=== PATIENT | female | born 1950 | race Caucasian/White ===

== ENCOUNTER 2017-10-16 11:06 | Inpatient (IN) | payer OTHER, BC ==
--- NOTE | 2017-10-16 11:52 | RAD REPORT ---
EXAM DESCRIPTION: RAD - Chest Single View - 10/16/2017 11:47 am CLINICAL HISTORY: Fever and chills COMPARISON: 08/01/2017 FINDINGS: Portable technique limits examination quality. Mild linear opacities are present in the right upper lobe which could indicate developing pneumonia. The lungs are otherwise emphysematous but clear. The heart is mildly enlarged in size. No displaced f ractures.
[2017-10-16] MEDS ORDERED: NA CHLORIDE 0.9% 1,000 ML ONE (11:56)
[2017-10-16 12:10] LABS: Absolute Lymphocytes (CBC) 0.2 K/uL (0.7-4.9); Absolute Monocytes 0.9 K/uL (0.1-1.3); Absolute Neutrophil 15.5 K/uL (1.8-8.0); Basophils % 1.2 % (0-1.3); Eosinophils % 0.1 % (0-4.4); Hematocrit 16.6 % (36.0-45.0); Lymphocytes % 1.1 % (15.3-44.8); MCH 34.3 pg (27.0-35.0); MCV 104.5 fL (80-100); Monocytes % 5.2 % (3.3-12.3); RBC Red Blood Cell Count 1.59 M/uL (3.86-4.86)
[2017-10-16 12:27] LABS: Potassium 3.4 mEq/L (3.6-5.0)
[2017-10-16 12:29] LABS: Protime INR 1.34
[2017-10-16 12:33] LABS: Albumin 3.4 g/dL (3.2-5.5); Bilirubin Direct 0.2 mg/dL (0-0.2); Bilirubin Total 1.2 mg/dL (0.3-1.2); Magnesium 1.6 mg/dL (1.8-2.5); Protein, Total 8.8 g/dL (6.0-8.3)
[2017-10-16 12:35] LABS: CKMB Creatine Kinase MB 2.7 ng/ml (0.3-4.0)
[2017-10-16] MEDS ORDERED: Levofloxacin500mg IV 500 MG/100 ML BAG IV ONE (12:49)
[2017-10-16] MEDS ORDERED: PANTOPRAZOLE 40 MG INJ ONE (12:49)
[2017-10-16] MEDS ORDERED: CEFTRIAXONE/SWI 1gm 1 GM/10 ML SYR ONE (12:49)
--- NOTE | 2017-10-16 13:02 | ER ---
Nurse's Notes [facility] Name: Farida Estrella Age: 67 yrs Sex: Female : 1950 Arrival Date: 10/16/2017 Time: 11:09 Bed 4 Private MD: Vic Allen V Diagnosis: Diarrhea, unspecified;Pneumonia due to other specified bacteria;Hypokalemia;Anemia, unspecified;Hypomagnesemia;Elevated white blood cell count;Urinary tract infection, site not specified Presentation: 10/16 11:11 Presenting complaint: Patient states: i started having diarrhea today; 5- 7x within 10 hj mins; denies pain, reports nausea; reports fever and chills; im still on chemo tx for a clinical trial; reports watery brown stool;. Transition of care: patient was not received from another setting of care. Onset of symptoms was October 16, 2017. Care prior to arrival: None. 11:11 Method Of Arrival: Ambulatory 11:11 Acuity: JONATHON 3 hj Triage Assessment: 11:16 General: Appears in no apparent distress. uncomfortable, Behavior is calm, cooperative, hj appropriate for age. Pain: Denies pain. GI: Reports vomiting. Historical: - Allergies: 11:16 Demerol; hj - Home Meds: 11:16 aspirin 81 mg Oral chew 1 tab once daily [Active]; cyclophosphamide 50 mg Oral cap for hj multiple myeloma [Active]; potassium chloride 8 mEq Oral cpER 1 cap 2 times per day [Active]; Toprol XL 50 mg Oral Tb24 1 tab once daily [Active]; Valtrex 500 mg Oral tab 1 tab once daily [Active]; - PMHx: 11:16 multiple myeloma; hj 16:00 COPD; sv - PSHx: 11:16 None; hj - Immunization history:: Adult Immunizations up to date. - Social history:: Smoking status: Patient/guardian denies using tobacco. Screenin:40 Abuse screen: Denies threats or abuse. Denies injuries from another. Nutritional sv screening: No deficits noted. Tuberculosis screening: No symptoms or risk factors identified. Fall Risk None identified. Assessment: 11:40 General: Appears in no apparent distress. uncomfortable, slender, Behavior is calm, sv cooperative, appropriate for age. Pain: Denies pain. Neuro: Level of Consciousness is awake, alert, obeys commands, Oriented to person, place, time, situation, Moves all extremities. Full function Speech is normal, Reports weakness. Cardiovascular: Heart tones S1 S2 present Patient's skin is warm and dry. Pulses are 2+ in right radial artery and left radial artery. Respiratory: Respiratory effort is even, unlabored, Respiratory pattern is regular, symmetrical, Breath sounds are clear bilaterally. GI: Abdomen is flat, non-distended, Abd is soft and non tender X 4 quads. Reports diarrhea. Derm: Skin is pale. 12:38 Reassessment: Patient appears in no apparent distress at this time. No changes from sv previously documented assessment. Patient and/or family updated on plan of care and expected duration. Pain level reassessed. Patient is alert, oriented x 3, equal unlabored respirations, skin warm/dry/pink. 13:19 Reassessment: Patient appears in no apparent distress at this time. No changes from sv previously documented assessment. Patient and/or family updated on plan of care and expected duration. Pain level reassessed. Patient is alert, oriented x 3, equal unlabored respirations, skin warm/dry/pink. 13:40 Reassessment: Patient appears in no apparent distress at this time. No changes from sv previously documented assessment. Patient and/or family updated on plan of care and expected duration. Pain level reassessed. Patient is alert, oriented x 3, equal unlabored respirations, skin warm/dry/pink. 13:50 Reassessment: 1st unit of PRBCs started, see tranfusion record. sv 14:23 Reassessment: Patient appears in no apparent distress at this time. No changes from sv previously documented assessment. Patient and/or family updated on plan of care and expected duration. Pain level reassessed. Patient is alert, oriented x 3, equal unlabored respirations, skin warm/dry/pink. Respiratory: Breath sounds are clear bilaterally. 14:50 Reassessment: Patient appears in no apparent distress at this time. Patient and/or sv family updated on plan of care and expected duration. Pain level reassessed. Patient is alert, oriented x 3, equal unlabored respirations, skin warm/dry/pink. Respiratory: Respiratory effort is even, unlabored, Respiratory pattern is regular, symmetrical, Breath sounds are clear bilaterally. 15:20 Reassessment: Patient appears in no apparent distress at this time. Patient and/or sv family updated on plan of care and expected duration. Pain level reassessed. Patient is alert, oriented x 3, equal unlabored respirations, skin warm/dry/pink. Respiratory: Respiratory effort is even, unlabored, Respiratory pattern is regular, symmetrical, Breath sounds are clear bilaterally. 16:00 Reassessment: 1st unit of PRBCs checked with Marzena TODD on 2nd floor at bedside. sv 16:01 Reassessment: Patient appears in no apparent distress at this time. Patient and/or sv family updated on plan of care and expected duration. Pain level reassessed. Patient is alert, oriented x 3, equal unlabored respirations, skin warm/dry/pink. Respiratory: Airway is patent Respiratory effort is even, unlabored, Respiratory pattern is regular, symmetrical, Breath sounds are clear bilaterally. Vital Signs: 11:17 BP 100 / 78; Pulse 118; Resp 20; Temp 97.7(O); Pulse Ox 98% on 2 lpm NC; Weight 67.59 hj kg; Height 5 ft. 6 in. (167.64 cm); Pain 0/10; 12:30 BP 107 / 64; Pulse 118 MON; Resp 18; Pulse Ox 98% on 2 lpm NC; sv 13:22 BP 122 / 60; Pulse 120; Resp 26; Pulse Ox 99% ; sv 13:55 BP 112 / 63; Pulse 111; Resp 30; Temp 99.4(O); Pulse Ox 99% on 2 lpm NC; sv 14:20 BP 106 / 54; Pulse 108; Resp 28; Temp 98.5(O); Pulse Ox 99% on 2 lpm NC; sv 15:50 BP 110 / 56; Pulse 98; Resp 28; Temp 98.5(O); Pulse Ox 100% on 2 lpm NC; sv 11:17 Body Mass Index 24.05 (67.59 kg, 167.64 cm) hj 12:30 Sinus tachycardia sv ED Course: 11:09 Patient arrived in ED. mr 11:09 Kellie Soto MD is Private Physician. mr 11:09 Vic Allen MD is Private Physician. mr 11:15 Triage completed. hj 11:17 Arm band placed on left wrist. hj 11:22 Wallace Campbell MD is Attending Physician. deidre 11:35 Sarah Gastelum, PEREZ is Primary Nurse. sv 11:40 Patient has correct armband on for positive identification. Placed in gown. Bed in low sv position. Call light in reach. Side rails up X2. Adult w/ patient. school bus monitor on. Pulse ox on. NIBP on. Door closed. Warm blanket given. Pillow given. Head of bed elevated. 11:45 Initial lab(s) drawn, by me, sent to lab. Inserted saline lock: 22 gauge in right sv forearm, using aseptic technique. ,using aseptic technique. diffusics Blood collected. Flushed right forearm with 5 ml normal saline. 11:45 First set of blood cultures drawn by me. sv 12:00 Second set of blood cultures drawn by me. sv 12:40 Inserted saline lock: 20 gauge in left antecubital area, using aseptic technique. sv ,using aseptic technique. done by Rajan [facility]. 13:00 Vic Allen MD is Hospitalizing Provider. [facility] 13:21 Consent for blood and/or blood product transfusion explained by staff, signed by sv patient. 14:25 Urine Dipstick--Ancillary (enter results) Sent. sv 16:00 No provider procedures requiring assistance completed. Patient admitted, IV remains in sv place. intact. Administered Medications: 12:00 Drug: NS 0.9% 500 ml Route: IV; Rate: bolus; Site: right forearm; sv 12:30 Follow up: Response: No adverse reaction; IV Status: Completed infusion; IV Intake: sv 500ml 12:31 Drug: NS 0.9% 1000 ml Route: IV; Rate: 125 ml/hr; Site: right antecubital; sg 13:50 Follow up: Rate change 40 ml/hr; Reduced due to PRBC infusion and antibiotic and sv Magnesium infusions. 12:38 Drug: ProTONIX 40 mg Route: IVP; Site: right wrist; sg 13:20 Follow up: Response: No adverse reaction sv 12:38 Drug: Rocephin - (cefTRIAXone) 1 grams Route: IVPB; Infused Over: 30 mins; Site: right sg wrist; 12:45 Follow up: Response: No adverse reaction; IV Status: Completed infusion; IV Intake: 10mlsv 12:38 Drug: levofloxacin 500 mg Volume: 100 ml; Route: IVPB; Infused Over: 60 mins; Site: sg right wrist; 14:25 Follow up: Response: No adverse reaction; IV Status: Completed infusion; IV Intake: sv 100ml 12:41 CANCELLED (Duplicate Order): Potassium Chloride 20 mEq PO once deidre 12:42 CANCELLED (Duplicate Order): Lovenox 40 mg Sub-Q once deidre 12:56 CANCELLED (Duplicate Order): Lovenox 50 mg Sub-Q once deidre 13:19 Drug: Potassium Chloride 20 mEq Route: PO; sv 14:22 Follow up: Response: No adverse reaction sv 13:19 Drug: Lovenox 40 mg Route: Sub-Q; Site: left lower abdomen; sv 14:22 Follow up: Response: No adverse reaction sv 13:20 Drug: Aspirin 81 mg Route: PO; sv 14:22 Follow up: Response: No adverse reaction sv 13:40 Drug: Benadryl 12.5 mg Route: IVP; Site: left antecubital; sv 14:24 Follow up: Response: No adverse reaction sv 13:40 Drug: Tylenol 650 mg Route: PO; sv 14:24 Follow up: Response: No adverse reaction sv 14:23 Drug: Magnesium Sulfate 1 grams Route: IVPB; Infused Over: 1 hrs; Site: right forearm; sv 15:20 Follow up: Response: No adverse reaction; IV Status: Completed infusion; IV Intake: sv 100ml Intake: 12:30 IV: 500ml; Total: 500ml. sv 12:45 IV: 10ml; Total: 510ml. sv 14:25 IV: 100ml; Total: 610ml. sv 15:20 IV: 100ml; Total: 710ml. sv Outcome: 13:02 Decision to Hospitalize by Provider. [facility] 16:01 Admitted to Tele accompanied by nurse, accompanied by tech, family with patient, via sv stretcher, room 205, with oxygen, with chart, Report called to Marzena TODD 16:01 Condition: stable 16:01 Instructed on the need for admit. 16:31 Patient left the ED. iw Signatures: Sarah Gastelum RN Gadiel Velázquez, RN Wallace Luu MD MD cha Rivera, Maria mr Williams, Irene, RN RN Tony Velazquez RN RN hj Corrections: (The following items were deleted from the chart) 11:17 11:11 Presenting complaint: Patient states: i started having diarrhea today; 5- 7x hj within 10 mins; denies pain, reports fever and chills; im still on chemo tx for a clinical trial; reports watery brown stool; 11:30 11:17 BP 99 / 63; Pulse 60bpm; Resp 20bpm; Pulse Ox 98% 2 lpm Nasal Cannula; Temp 97.7F hj Oral; 67.59 kg; Height 5 ft. 6 in.; BMI: 24.0; Pain 0/10; hj
--- NOTE | 2017-10-16 13:03 | EDPHYS ---
Physician Documentation [facility] Name: Farida Estrella Age: 67 yrs Sex: Female : 1950 Arrival Date: 10/16/2017 Time: 11:09 Bed 4 Private MD: Vic Allen V ED Physician Wallace Campbell HPI: 10/16 11:34 This 67 yrs old Female presents to ER via Ambulatory with complaints of deidre Diarrhea. 11:34 The patient presents to the emergency department with diarrhea. Onset: The deidre symptoms/episode began/occurred 1 day(s) ago. Possible causes: unknown. The symptoms are aggravated by nothing. The symptoms are alleviated by nothing. Associated signs and symptoms: The patient has no apparent associated signs or symptoms. Severity of symptoms: At their worst the symptoms were. The patient has not experienced similar symptoms in the past. Historical: - Allergies: 11:16 Demerol; hj - Home Meds: 11:16 aspirin 81 mg Oral chew 1 tab once daily [Active]; cyclophosphamide 50 mg Oral cap for hj multiple myeloma [Active]; potassium chloride 8 mEq Oral cpER 1 cap 2 times per day [Active]; Toprol XL 50 mg Oral Tb24 1 tab once daily [Active]; Valtrex 500 mg Oral tab 1 tab once daily [Active]; - PMHx: 11:16 multiple myeloma; hj 16:00 COPD; sv - PSHx: 11:16 None; hj - Immunization history:: Adult Immunizations up to date. - Social history:: Smoking status: Patient/guardian denies using tobacco. ROS: 11:35 Constitutional: Negative for fever, chills, and weight loss, Eyes: Negative for injury, deidre pain, redness, and discharge, ENT: Negative for injury, pain, and discharge, Neck: Negative for injury, pain, and swelling, Respiratory: Negative for shortness of breath, cough, wheezing, and pleuritic chest pain, Back: Negative for injury and pain, : Negative for injury, bleeding, discharge, and swelling, MS/Extremity: Negative for injury and deformity, Skin: Negative for injury, rash, and discoloration, Neuro: Negative for headache, weakness, numbness, tingling, and seizure, Psych: Negative for depression, anxiety, suicide ideation, homicidal ideation, and hallucinations, Allergy/Immunology: Negative for hives, rash, and allergies, Endocrine: Negative for neck swelling, polydipsia, polyuria, polyphagia, and marked weight changes, Hematologic/Lymphatic: Negative for swollen nodes, abnormal bleeding, and unusual bruising. 11:35 Cardiovascular: Positive for chest pain. 11:35 Abdomen/GI: Positive for diarrhea. Exam: 11:35 Constitutional: This is a well developed, well nourished patient who is awake, alert, deidre and in no acute distress. Head/Face: Normocephalic, atraumatic. Eyes: Pupils equal round and reactive to light, extra-ocular motions intact. Lids and lashes normal. Conjunctiva and sclera are non-icteric and not injected. Cornea within normal limits. Periorbital areas with no swelling, redness, or edema. ENT: Nares patent. No nasal discharge, no septal abnormalities noted. Tympanic membranes are normal and external auditory canals are clear. Oropharynx with no redness, swelling, or masses, exudates, or evidence of obstruction, uvula midline. Mucous membranes moist. Neck: Trachea midline, no thyromegaly or masses palpated, and no cervical lymphadenopathy. Supple, full range of motion without nuchal rigidity, or vertebral point tenderness. No Meningismus. Chest/axilla: Normal chest wall appearance and motion. Nontender with no deformity. No lesions are appreciated. Cardiovascular: Regular rate and rhythm with a normal S1 and S2. No gallops, murmurs, or rubs. Normal PMI, no JVD. No pulse deficits. Respiratory: Lungs have equal breath sounds bilaterally, clear to auscultation and percussion. No rales, rhonchi or wheezes noted. No increased work of breathing, no retractions or nasal flaring. Abdomen/GI: Soft, non-tender, with normal bowel sounds. No distension or tympany. No guarding or rebound. No evidence of tenderness throughout. Back: No spinal tenderness. No costovertebral tenderness. Full range of motion. Female : Normal external genitalia. Neuro: Awake and alert, GCS 15, oriented to person, place, time, and situation. Cranial nerves II-XII grossly intact. Motor strength 5/5 in all extremities. Sensory grossly intact. Cerebellar exam normal. Normal gait. Psych: Awake, alert, with orientation to person, place and time. Behavior, mood, and affect are within normal limits. 11:35 Musculoskeletal/extremity: ROM: intact in all extremities, full active range of motion, Circulation is intact in all extremities. Sensation intact. Compartment Syndrome exam of affected extremity: is normal. Joints: All joints appear normal with full range of motion. DVT Exam: no pain, no tenderness, negative Homans' sign noted on exam, no appreciated bluish discoloration, no erythema, no increased warmth, swelling. 11:35 Skin: Appearance: Color: 11:35 Neuro: Orientation: is normal, appropriate for stated age, no acute changes, Mentation: is normal, appropriate for stated age, no acute changes, Memory: is normal, appropriate for stated age, no acute changes, Cranial nerves: grossly normal, is grossly normal based on the patient's age, no acute changes, Cerebellar function: is grossly normal, is grossly normal based on the patient's age, no acute changes, Gait: not tested. Deep tendon reflexes are 2+ (normal) in the bilateral brachioradialis, bicep, tricep and patellar and Achilles tendons, seizure activity, is not displayed by the patient. Vital Signs: 11:17 BP 100 / 78; Pulse 118; Resp 20; Temp 97.7(O); Pulse Ox 98% on 2 lpm NC; Weight 67.59 hj kg; Height 5 ft. 6 in. (167.64 cm); Pain 0/10; 12:30 BP 107 / 64; Pulse 118 MON; Resp 18; Pulse Ox 98% on 2 lpm NC; sv 13:22 BP 122 / 60; Pulse 120; Resp 26; Pulse Ox 99% ; sv 13:55 BP 112 / 63; Pulse 111; Resp 30; Temp 99.4(O); Pulse Ox 99% on 2 lpm NC; sv 14:20 BP 106 / 54; Pulse 108; Resp 28; Temp 98.5(O); Pulse Ox 99% on 2 lpm NC; sv 15:50 BP 110 / 56; Pulse 98; Resp 28; Temp 98.5(O); Pulse Ox 100% on 2 lpm NC; sv 11:17 Body Mass Index 24.05 (67.59 kg, 167.64 cm) hj 12:30 Sinus tachycardia sv MDM: 11:22 Patient medically screened. [facility] 11:39 Data reviewed: vital signs, nurses notes, lab test result(s), EKG, radiologic studies, [facility] plain films. 10/16 11:34 Order name: Basic Metabolic Panel [facility] 10/16 11:34 Order name: BNP [facility] 10/16 11:34 Order name: CBC with Diff [facility] 10/16 11:34 Order name: Ckmb [facility] 10/16 11:34 Order name: CPK [facility] 10/16 11:34 Order name: LFT's [facility] 10/16 11:34 Order name: Magnesium [facility] 10/16 11:34 Order name: PT-INR [facility] 10/16 11:34 Order name: Ptt, Activated [facility] 10/16 11:34 Order name: Troponin (emerg Dept Use Only) [facility] 10/16 11:34 Order name: Lipase [facility] 10/16 11:34 Order name: Stool Culture [facility] 10/16 11:34 Order name: Occult Blood [facility] 10/16 11:34 Order name: Fecal Leukocyte Stain [facility] 10/16 11:34 Order name: Blood Culture Adult (2) [facility] 10/16 11:34 Order name: Procalcitonin [facility] 10/16 11:34 Order name: Type And Screen [facility] 10/16 11:34 Order name: D-Dimer [facility] 10/16 11:34 Order name: Urine Culture [facility] 10/16 12:15 Order name: CBC with Automated Diff [facility] 10/16 12:27 Order name: Basic Metabolic Panel; Complete Time: 12:39 [facility] 10/16 12:27 Order name: Lipase; Complete Time: 12:39 [facility] 10/16 12:31 Order name: Protime (+INR); Complete Time: 12:39 EDMS 10/16 12:31 Order name: PTT, Activated Partial Thromb; Complete Time: 12:39 EDMS 10/16 12:31 Order name: D-Dimer; Complete Time: 12:39 EDMS 10/16 12:32 Order name: Troponin (Emerg Dept Use Only); Complete Time: 12:39 EDMS 10/16 12:36 Order name: Liver (Hepatic) Function; Complete Time: 12:39 EDMS 10/16 12:36 Order name: Creatine Phosphokinase; Complete Time: 12:39 EDMS 10/16 12:36 Order name: CKMB Creatine Kinase MB; Complete Time: 12:39 EDMS 10/16 12:36 Order name: Magnesium; Complete Time: 12:39 [facility]MS 10/16 11:34 Order name: XRAY Chest (1 view) [facility] 10/16 11:34 Order name: EKG; Complete Time: 11:35 [facility] 10/16 11:34 Order name: Cardiac monitoring; Complete Time: 14:26 [facility] 10/16 11:34 Order name: EKG - Nurse/Tech; Complete Time: 14:26 [facility] 10/16 11:34 Order name: IV Saline Lock; Complete Time: 14:26 [facility] 10/16 11:34 Order name: Labs collected and sent; Complete Time: 14: [facility] 10/16 11:34 Order name: O2 Per Protocol; Complete Time: 14:26 [facility] 10/16 11:34 Order name: O2 Sat Monitoring; Complete Time: 14:26 [facility] 10/16 11:34 Order name: Urine Dipstick-Ancillary (obtain specimen); Complete Time: 14: [facility] 10/16 11:53 Order name: RAD; Complete Time: 12:15 [facility] 10/16 12:15 Order name: Transfuse; Complete Time: 14:26 [facility] 10/16 12:44 Order name: BNP B-Type Natriuretic Peptide; Complete Time: 12:55 [facility] 10/16 12:54 Order name: Type and Screen [facility] 10/16 13:19 Order name: CBC Smear Scan [facility] 10/16 13:25 Order name: Procalcitonin [facility] 10/16 14:22 Order name: Urine Dipstick--Ancillary (enter results) 10/16 16:00 Order name: Urine Dipstick-Ancillary [facility] 10/16 16:26 Order name: Troponin I [facility] Administered Medications: 12:00 Drug: NS 0.9% 500 ml Route: IV; Rate: bolus; Site: right forearm; sv 12:30 Follow up: Response: No adverse reaction; IV Status: Completed infusion; IV Intake: sv 500ml 12:31 Drug: NS 0.9% 1000 ml Route: IV; Rate: 125 ml/hr; Site: right antecubital; sg 13:50 Follow up: Rate change 40 ml/hr; Reduced due to PRBC infusion and antibiotic and sv Magnesium infusions. 12:38 Drug: ProTONIX 40 mg Route: IVP; Site: right wrist; sg 13:20 Follow up: Response: No adverse reaction sv 12:38 Drug: Rocephin - (cefTRIAXone) 1 grams Route: IVPB; Infused Over: 30 mins; Site: right sg wrist; 12:45 Follow up: Response: No adverse reaction; IV Status: Completed infusion; IV Intake: 10mlsv 12:38 Drug: levofloxacin 500 mg Volume: 100 ml; Route: IVPB; Infused Over: 60 mins; Site: sg right wrist; 14:25 Follow up: Response: No adverse reaction; IV Status: Completed infusion; IV Intake: sv 100ml 12:41 CANCELLED (Duplicate Order): Potassium Chloride 20 mEq PO once deidre 12:42 CANCELLED (Duplicate Order): Lovenox 40 mg Sub-Q once deidre 12:56 CANCELLED (Duplicate Order): Lovenox 50 mg Sub-Q once deidre 13:19 Drug: Potassium Chloride 20 mEq Route: PO; sv 14:22 Follow up: Response: No adverse reaction sv 13:19 Drug: Lovenox 40 mg Route: Sub-Q; Site: left lower abdomen; sv 14:22 Follow up: Response: No adverse reaction sv 13:20 Drug: Aspirin 81 mg Route: PO; sv 14:22 Follow up: Response: No adverse reaction sv 13:40 Drug: Benadryl 12.5 mg Route: IVP; Site: left antecubital; sv 14:24 Follow up: Response: No adverse reaction sv 13:40 Drug: Tylenol 650 mg Route: PO; sv 14:24 Follow up: Response: No adverse reaction sv 14:23 Drug: Magnesium Sulfate 1 grams Route: IVPB; Infused Over: 1 hrs; Site: right forearm; sv 15:20 Follow up: Response: No adverse reaction; IV Status: Completed infusion; IV Intake: sv 100ml Disposition: 10/16/17 13:02 Hospitalization ordered by Vic Allen for Inpatient Admission. Preliminary diagnosis are Diarrhea, unspecified, Pneumonia due to other specified bacteria, Hypokalemia, Anemia, unspecified, Hypomagnesemia, Elevated white blood cell count, Urinary tract infection, site not specified. - Bed requested for Telemetry/MedSurg (Inpatient). - Status is Inpatient Admission. iw - Condition is Fair. - Problem is new. - Symptoms have improved. UTI on Admission? Yes Signatures: Dispatcher [employer] Sarah Loving RN RN sv Gay, Steven, RN RN sg Anderson, Corey, MD MD cha Williams, Irene, RN RN iw Gallardo, Ana ag Joaquin, Tony, RN RN hj Corrections: (The following items were deleted from the chart) 12:41 12:41 Potassium Chloride 20 mEq PO once ordered. deidre deidre 12:42 12:40 Lovenox 40 mg Sub-Q once ordered. deidre deidre 12:56 12:43 Lovenox 50 mg Sub-Q once ordered. deidre deidre
[2017-10-16] MEDS ORDERED: ALBUTEROL 2.5 MG/3 ML NEB SOL NEB PRN (13:06)
[2017-10-16] MEDS ORDERED: ACETAMINOPHEN 500 MG TAB PO PRN (13:06)
[2017-10-16] MEDS ORDERED: ONDANSETRON 4 MG/2 ML VIAL IV PRN (13:06)
[2017-10-16] MEDS ORDERED: IPRATROPIUM BROM 0.5MG/2.5ML NEB PRN (13:06)
[2017-10-16] MEDS ORDERED: MORPHINE 4 MG/ML SYR IV PRN (13:06)
[2017-10-16] MEDS ORDERED: SODIUM CHLORIDE 0.9% 10ML INJ IV PRN (13:07)
[2017-10-16 13:18] LABS: Anisocytosis 3+; Blood Morphology Comment NOTED (NOT SEEN); Platelet Estimate DECR; Urine White Blood Cell Casts OK
[2017-10-16] MEDS ORDERED: ASPIRIN 81 MG CHEWABLE TABLET ONE (13:22)
[2017-10-16] MEDS ORDERED: ENOXAPARIN 40 MG/0.4 ML SQ ONE (13:22)
[2017-10-16] MEDS ORDERED: POTASSIUM CL SA 10 MEQ TAB PO ONE (13:22)
[2017-10-16] MEDS ORDERED: NA CHLORIDE 0.9% 250 ML ONE (13:22)
[2017-10-16] MEDS ORDERED: MAGNESIUM SULFATE 1 gm IVPB 1 GM/100 ML BAG IV ONE (13:22)
[2017-10-16] MEDS ORDERED: DIPHENHYDRAMINE 50 MG/ML VIAL ONE (13:53)
[2017-10-16] MEDS ORDERED: ACETAMINOPHEN 325 MG TABLET ONE (13:53)
[2017-10-16] MEDS ORDERED: TRAMADOL HCL 50 MG TAB ONE (14:29)
[2017-10-16 15:59] LABS: Urine Blood 2+ (NEG); Urine Glucose NEGATIVE (NEG); Urine Protein 2+ (NEG); Urine Specific Gravity 1.015 (1.005-1.030)
--- NOTE | 2017-10-16 17:33 | P.HP ---
Certification for Inpatient Patient admitted to: Observation With expected LOS: <2 Midnights Practitioner: I am a practitioner with admitting privileges, knowledge of patient current condition, hospital course, and medical plan of care. Services: Services provided to patient in accordance with Admission requirements found in Title 42 Section 412.3 of the Code of Federal Regulations Patient History Date of Service: 10/16/17 Reason for admission: CHILLS, WEAK History of Present Illness: MS MORE IS DOING CHEMO FOR M MYELOMA AT [facility], LAST CHEMO WAS ABOUT TWO WEEKS AGO. SHE HAS BEEN ILL FOR MORE THAN 5 YEARS WITH MYELOMA AND GOING FOR THERAPY EXTENSIVELY AT [facility]. SHE HAS BEEN TO THIS HOSPITAL A FEW TIMES FOR INFECTIONS OR COPD. SHE HAS HAD CHILL FOR TWO DAYS. SHE ALSO HAS ANEMIA OF HG 5.4 GM. Allergies meperidine [From Demerol] Allergy (Verified 09/13/17 08:44) Unknown Home Medications: Metoprolol Succinate [Toprol Xl*] 50 mg PO DAILY 09/12/16 Omeprazole [Prilosec] 40 mg PO DAILY 09/12/16 Valacyclovir [Valtrex*] 500 mg PO DAILY 09/12/16 Ondansetron [Ondansetron Odt] 4 mg SL Q8H PRN 04/05/17 Pregabalin [Lyrica] 75 mg PO BID 08/01/17 Tramadol HCl [Ultram] 50 mg PO DAILY 08/01/17 B12/Levomefolate Calcium/B-6 [Foltx Tablet] 1 tab PO DAILY 09/13/17 - Past Medical/Surgical History Diabetic: No -: multiple myeloma -: HTN -: COPD -: chemo -: ceasarian X2 -: byopsy -: cataract aron eye - Family History Mother -: Diabetes, Cancer Brother -: Cancer - Social History Alcohol use: No CD- Drugs: No Caffeine use: Yes Review of Systems 10-point ROS is otherwise unremarkable General: Weakness, Malaise Respiratory: Cough, Pleuritic Pain Physical Examination - Vital Signs Temperature: 98.5 F Blood Pressure: 110/56 Pulse: 98 Respirations: 28 - Physical Exam General: Alert, Moderate distress HEENT: Atraumatic, PERRLA, Mucous membr. moist/pink, EOMI, Sclerae nonicteric Neck: Supple, 2+ carotid pulse no bruit, No LAD, Without JVD or thyroid abnormality Respiratory: Diminished Cardiovascular: Regular rate/rhythm, Normal S1 S2 Gastrointestinal: Normal bowel sounds, No tenderness Musculoskeletal: No tenderness Integumentary: No rashes Neurological: Normal gait, Normal speech, Normal strength at 5/5 x4 extr, Normal tone, Normal affect Lymphatics: No axilla or inguinal lymphadenopathy - Studies Laboratory Data (last 24 hrs) 10/16/17 11:45: PT 15.9 H, INR 1.34, APTT 24.8 10/16/17 11:45: WBC 16.8 H, Hgb 5.4 L*, Hct 16.6 L*, Plt Count 60 L 10/16/17 11:45: B-Natriuretic Peptide 421 H 10/16/17 11:45: Sodium 133 L, Potassium 3.4 L, BUN 27 H, Creatinine 1.90 H, Glucose 118, Magnesium 1.6 L D, Total Bilirubin 1.2, AST 46 H, ALT 14, Alkaline Phosphatase 50, Lipase 10 L Assessment and Plan - Problems (Diagnosis) (1) Anemia Current Visit: No Status: Acute Plan: THIS IS MOST LIKELY FROM CHEMO. THERE IS NO ACUTE BLEEDING. HER PLATELETS ARE LOW ALSO. I WILL STOP LOVENOX AND SHE WILL GET FOUR UNITS OF BLOOD. (2) Pneumonia Onset Date: 08/03/17 Current Visit: No Status: Acute Plan: MILD , EARLY , RESUME ABX ROCEPHIN AND LEVAQUIN FROM ER (3) Multiple myeloma Onset Date: 08/03/17 Current Visit: No Status: Chronic Plan: AT Megan MORALEZ, NOW WILL BE ON EXP THERAPY PROGNOSIS IS GUARDED. Qualifiers: Multiple myeloma remission status: not in remission - Advance Directives Does patient have a Living Will: No Does patient have a Durable POA for Healthcare: No
[2017-10-16] MEDS: MAGNESIUM OXIDE 400 MG TAB PO SCH (20:11)
[2017-10-16] MEDS: CEFTRIAXONE/SWI 1gm 1 GM/10 ML SYR IV SCH (20:12)
[2017-10-16] MEDS ORDERED: CEFTRIAXONE 1 GM/NS 50 ML 50 ML IV SCH (21:00)
[2017-10-17 01:59] LABS: Hematocrit 29.3 % (36.0-45.0)
--- NOTE | 2017-10-17 05:55 | EKG ---
Test Date: 2017-10-16 Test Time: 12:29:54 [employer] Lease Broker: [place] MEASUREMENT RESULTS: Intervals: Rate: 109 TX: 150 QRSD: 84 QT: 360 QTc: 484 Hazen: P: 77 TX: 150 QRS: 57 T: 110 INTERPRETIVE STATEMENTS: Sinus tachycardia and premature ventricular complexes Possible Left atrial enlargement Possible Anterior infarct, age undetermined Abnormal ECG Compared to ECG 08/01/2017 09:36:35 Ventricular premature complex(es) now present Myocardial infarct finding now present Atrial premature complex(es) no longer present Electronically Signed On 10-17-17 05:55:03 CDT by Alvarez Wren
[2017-10-17] MEDS ORDERED: METOPROLOL XL 50 MG TAB PO SCH (06:00)
[2017-10-17 06:11] LABS: Absolute Lymphocytes (CBC) 0.1 K/uL (0.7-4.9); Absolute Monocytes 0.6 K/uL (0.1-1.3); Basophils % 0.1 % (0-1.3); Eosinophils % 0.8 % (0-4.4); Hematocrit 29.6 % (36.0-45.0); Lymphocytes % 1.1 % (15.3-44.8); MCH 33.3 pg (27.0-35.0); MCV 98.1 fL (80-100); MPV 11.4 fL (7.6-11.3); Monocytes % 6.1 % (3.3-12.3); RBC Red Blood Cell Count 3.01 M/uL (3.86-4.86)
[2017-10-17 06:12] LABS: Potassium 3.5 mEq/L (3.6-5.0)
[2017-10-17 07:14] LABS: Anisocytosis SLIGHT; Blood Morphology Comment NOTED (NOT SEEN); Platelet Estimate DECR
--- NOTE | 2017-10-17 08:50 | RAD REPORT ---
EXAM DESCRIPTION: RAD - Chest Single View - 10/17/2017 6:40 am CLINICAL HISTORY: Chest pain. COMPARISON: 10/16/2017, 08/01/2017 FINDINGS: Portable technique limits examination quality. Increased linear markings in the right upper lobe appears similar to prior study. The lungs are gross ly clear. The heart is mildly enlarged in size. No displaced fractures. IMPRESSION: Stable chest since 10/16/2017.
[2017-10-17] MEDS: MAGNESIUM OXIDE 400 MG TAB PO SCH (08:51)
[2017-10-17] MEDS: CEFTRIAXONE/SWI 1gm 1 GM/10 ML SYR IV SCH (08:51)
[2017-10-17] MEDS ORDERED: Levofloxacin500mg IV 500 MG/100 ML BAG IV SCH (09:00)
[2017-10-17] MEDS ORDERED: PANTOPRAZOLE 40 MG INJ IVP SCH (09:00)
[2017-10-17] MEDS ORDERED: POTASSIUM 25 MEQ EFFERV TAB PO SCH (09:00)
[2017-10-17] MEDS ORDERED: ENOXAPARIN 40 MG/0.4 ML SQ SCH (09:00)
[2017-10-17 09:43] LABS: Urine Appearance CLOUDY; Urine Bilirubin NEGATIVE (NEG); Urine Blood 2+ (NEG); Urine Color YELLOW; Urine Glucose NEGATIVE (NEG); Urine Protein 2+ (NEG); Urine Urobilinogen 0.2 mg/dL (0.2-1.0); Urine pH 5.5 (5.0-7.0)
[2017-10-17 09:58] LABS: Urine Microscopic Reflex ORDER UMIC
[2017-10-17 10:00] LABS: Urine Amorphous Sediment 2+ /HPF (NONE SEEN); Urine Bacteria >50 /HPF (<20); Urine Culture Reflex Order NOT NEEDED; Urine RBC <5 /HPF (NONE SEEN)
--- NOTE | 2017-10-17 10:00 | RAD REPORT ---
EXAM DESCRIPTION: NM - Vent Perfusion VQ Scan - 10/17/2017 6:45 am CLINICAL HISTORY: Chest pain, shortness of breath. COMPARISON: Recent chest radiograph correlation was performed. TECHNIQUE: The patient was administered approximately 19.2 MCi Xenon 133 gas with posterior projecti on inspiration, equilibrium, and washout views obtained. The patient was then administered approximat mehreen 6.9 MCi Tc-99m SC labeled RBCs followed by standard 8 view protocol. FINDINGS: Hypoventilation is noted involving the left lower lobe. Elsewhere, there is a heterogenous ventilatory pattern with moderate air trapping. Perfusion imaging shows a single moderate segmental defect in the superior posterior aspect of the ri ght lung which is mismatched. No chest radiograph abnormality in this location seen to explain this finding. IMPRESSION: High probability V/Q scan. Findings were discussed with Dr. Allen 10/17/2017 10 a.m. by telephone.
[2017-10-17] MEDS ORDERED: ENOXAPARIN 30 MG/0.3 ML SQ SCH (18:00)
--- NOTE | 2017-10-17 21:53 | P.DS ---
Admission Date: 10/16/17 Discharge Date: 10/17/17 Disposition: ROUTINE DISCHARGE Reason for Admission: CHILLS, WEAK - Problems (1) Anemia Onset Date: 10/17/17 Status: Acute (2) Pneumonia Onset Date: 08/03/17 Status: Acute (3) Multiple myeloma Onset Date: 08/03/17 Status: Chronic Qualifiers: Multiple myeloma remission status: not in remission Brief History of Present Illness: MS MORE IS DOING CHEMO FOR M MYELOMA AT [facility], LAST CHEMO WAS ABOUT TWO WEEKS AGO. SHE HAS BEEN ILL FOR MORE THAN 5 YEARS WITH MYELOMA AND GOING FOR THERAPY EXTENSIVELY AT [facility]. SHE HAS BEEN TO THIS HOSPITAL A FEW TIMES FOR INFECTIONS OR COPD. SHE HAS HAD CHILL FOR TWO DAYS. SHE ALSO HAS ANEMIA OF HG 5.4 GM. Hospital Course: MS MORE COME SWITH MILD PNEUMONIA, ANEMIA AND PE ON VQ SCAN . SHE IS VERY STABLE AND WANTS TO GO HOME. HE IS GIVEN LEVAQUIN, ELIQUS BID FOR PE. I DID NOT GIVE HER LOADING DOSE SHE IS ANEMIC AND ALSO HAS RENAL FUNCTION ISSUES. Vital Signs/Physical Exam: Temp Pulse Resp BP Pulse Ox 97.4 F 82 16 119/56 L 98 10/17/17 08:00 10/17/17 08:00 10/17/17 08:00 10/17/17 08:00 10/17/17 08:00 Laboratory Data at Discharge: WBC 9.8 K/uL (4.3-10.9) D 10/17/17 05:10 Hgb 10.0 g/dL (12.0-15.0) L 10/17/17 05:10 Hct 29.6 % (36.0-45.0) L 10/17/17 05:10 Plt Count 43 K/uL (152-406) L* D 10/17/17 05:10 PT 15.9 SECONDS (9.5-12.5) H 10/16/17 11:45 INR 1.34 10/16/17 11:45 APTT 24.8 SECONDS (24.3-36.9) 10/16/17 11:45 Sodium 137 mEq/L (135-145) 10/17/17 05:10 Potassium 3.5 mEq/L (3.6-5.0) L 10/17/17 05:10 BUN 30 mg/dL (6-20) H 10/17/17 05:10 Creatinine 1.64 mg/dL (0.44-1.00) H 10/17/17 05:10 Glucose 90 mg/dL (65-120) 10/17/17 05:10 Magnesium 1.6 mg/dL (1.8-2.5) L D 10/16/17 11:45 Total Bilirubin 1.2 mg/dL (0.3-1.2) 10/16/17 11:45 AST 46 IU/L (10-42) H 10/16/17 11:45 ALT 14 IU/L (10-60) 10/16/17 11:45 Alkaline Phosphatase 50 IU/L (42-121) 10/16/17 11:45 Troponin I 0.11 ng/mL (<0.03) H 10/16/17 20:02 B-Natriuretic Peptide 207 pg/ml (<=100) H 10/17/17 05:10 Lipase 10 U/L (22-51) L 10/16/17 11:45 Home Medications: Metoprolol Succinate [Toprol Xl*] 50 mg PO DAILY 09/12/16 Omeprazole [Prilosec] 40 mg PO DAILY 09/12/16 Valacyclovir [Valtrex*] 500 mg PO DAILY 09/12/16 Ondansetron [Ondansetron Odt] 4 mg SL Q8H PRN 04/05/17 Pregabalin [Lyrica] 75 mg PO BID 08/01/17 Tramadol HCl [Ultram] 50 mg PO DAILY 08/01/17 B12/Levomefolate Calcium/B-6 [Foltx Tablet] 1 tab PO DAILY 09/13/17 Apixaban [Eliquis] 5 mg PO BID #60 tablet 10/17/17 Levofloxacin [Levaquin] 250 mg PO DAILY #7 tab 10/17/17 New Medications: Apixaban [Eliquis] 5 mg PO BID #60 tablet Levofloxacin [Levaquin] 250 mg PO DAILY #7 tab Followup: Vic Allen MD [Primary Care Provider] - 1 Week (Follow up in office in 1 week. Call to schedule an appointment.)
== END 2017-10-17 10:26 | disposition home or self-care (01) | DRG 811 ==
LOC: ER 11:06 → ERHOLD 13:03 → 2ND 16:04
PROVIDERS: ADMIT Internal Medicine; ATTEND Internal Medicine
PROC: 30233N1 Transfusion of Nonautologous Red Blood Cells into Peripheral Vein, Percutaneous Approach (ICD-10-PCS; principal; 2017-10-16)
DX: D64.9 Anemia, unspecified (principal); J18.9 Pneumonia, unspecified organism; C90.00 Multiple myeloma not having achieved remission; I10 Essential (primary) hypertension; J44.9 Chronic obstructive pulmonary disease, unspecified
CPT/HCPCS: 36415; 71045; 78582; 80048; 80076; 81003; 81015; 82550; 82553; 83690; 83735; 83880; 84145; 84484; 85014; 85018; 85025; 85379; 85610; 85730; 86850; 86900; 86901; 87040; 87045; 87046; 87077; 87086; 87088; 87186; 87205; 89055; 93005; 96372; 99285; A9540; A9558; C9113; J0696; J1650; J3475; J7030; P9016

== ENCOUNTER → 2017-10-28 | Day surgery (SDC) | payer OTHER, BC ==
[~2017-10-28] MED LIST: ACETAMINOPHEN 325 MG TABLET PO ONE; DIPHENHYDRAMINE 25 MG TAB/CAP PO ONE; DIPHENHYDRAMINE 50 MG/ML VIAL ONE; NA CHLORIDE 0.9% 250 ML ONE
[2017-10-28 12:47] LABS: Platelet Estimate DECR
== END ==
LOC: DS 08:24
PROVIDERS: ATTEND Internal Medicine Medical Oncology
PROC: 30233R1 Transfusion of Nonautologous Platelets into Peripheral Vein, Percutaneous Approach (ICD-10-PCS; principal; 2017-10-28)
DX: D69.59 Other secondary thrombocytopenia (principal); C90.02 Multiple myeloma in relapse; C79.51 Secondary malignant neoplasm of bone
CPT/HCPCS: 36415; 36430; 85049; 86900; 86901; P9035

== ENCOUNTER 2017-11-03 07:40 | Day surgery (SDC) | payer OTHER, BC ==
[2017-11-02 14:59] LABS: Potassium 3.6 mEq/L (3.6-5.0)
[2017-11-03 08:02] LABS: Hematocrit 30.5 % (36.0-45.0)
[2017-11-03] MEDS ORDERED: NA CHLORIDE 0.9% 1,000 ML ONE (08:23)
[2017-11-03 09:12] LABS: Hematocrit 23.2 % (36.0-45.0)
[2017-11-03] MEDS ORDERED: NA CHLORIDE 0.9% 250 ML ONE (09:33)
== END 2017-11-03 15:15 | disposition home or self-care (01) ==
LOC: DS 07:40
PROVIDERS: ATTEND Internal Medicine Hematology & Oncology
DX: D64.9 Anemia, unspecified (principal); D69.59 Other secondary thrombocytopenia; C90.02 Multiple myeloma in relapse
CPT/HCPCS: 36415; 36430; 80048; 85014 ×3; 85018 ×3; 86850; 86900; 86901; J7030; P9016 ×2; P9035

== ENCOUNTER → 2017-11-11 | Day surgery (SDC) | payer OTHER, BC ==
[2017-11-10 15:02] LABS: Albumin 2.8 g/dL (3.2-5.5); Bilirubin Total 0.3 mg/dL (0.3-1.2); Potassium 4.1 mEq/L (3.6-5.0); Protein, Total 6.2 g/dL (6.0-8.3)
[~2017-11-11] MED LIST changes: -ACETAMINOPHEN 325 MG TABLET PO ONE; -DIPHENHYDRAMINE 25 MG TAB/CAP PO ONE; -DIPHENHYDRAMINE 50 MG/ML VIAL ONE
[2017-11-11 10:51] LABS: MPV 8.9 fL (7.6-11.3)
[2017-11-11 12:18] LABS: Platelet Estimate DECR
== END ==
LOC: DS 07:30
PROVIDERS: ATTEND Internal Medicine Hematology & Oncology
DX: D69.59 Other secondary thrombocytopenia (principal); C90.02 Multiple myeloma in relapse; C79.51 Secondary malignant neoplasm of bone
CPT/HCPCS: 36415 ×2; 36430; 80053; 85049; 86900; 86901; P9035

== ENCOUNTER 2017-11-22 07:45 | Day surgery (SDC) | payer OTHER, BC ==
[2017-11-21 15:11] LABS: Potassium 3.3 mEq/L (3.6-5.0)
[2017-11-22] MEDS ORDERED: NA CHLORIDE 0.9% 250 ML ONE (07:50)
[2017-11-22 17:10] LABS: Hematocrit 27.3 % (36.0-45.0)
== END 2017-11-22 17:00 | disposition home or self-care (01) ==
LOC: DS 07:45
PROVIDERS: ATTEND Internal Medicine Hematology & Oncology
DX: C90.02 Multiple myeloma in relapse (principal); D63.0 Anemia in neoplastic disease
CPT/HCPCS: 36415 ×2; 36430; 80048; 85014; 85018; 86850; 86900; 86901; P9016 ×2

== ENCOUNTER 2017-12-19 08:36 | Inpatient (IN) | payer OTHER, BC ==
[2017-12-19] MEDS ORDERED: NA CHLORIDE 0.9% 500 ML ONE (09:32)
[2017-12-19 10:03] LABS: Glucose Level 96 mg/dL (65-120); Lipase 16 U/L (22-51)
[2017-12-19 10:10] LABS: ALT/SGPT 31 IU/L (10-60); AST/SGOT 36 IU/L (10-42); Albumin 2.5 g/dL (3.2-5.5); Alkaline Phosphatase 79 IU/L (42-121); BUN Blood Urea Nitrogen 41 mg/dL (6-20); Bilirubin Direct < 0.1 mg/dL (0-0.2); Bilirubin Total 0.4 mg/dL (0.3-1.2)
[2017-12-19 10:12] LABS: Bicarbonate 16 mEq/L (21-31); Sodium Level 139 mEq/L (135-145)
[2017-12-19 10:15] LABS: Potassium 5.9 mEq/L (3.6-5.0)
[2017-12-19 10:17] LABS: Absolute Lymphocytes (CBC) 0.4 K/uL (0.7-4.9); Absolute Monocytes 0.9 K/uL (0.1-1.3); Absolute Neutrophil 1.1 K/uL (1.8-8.0); Basophils % 0.6 % (0-1.3); Eosinophils % 2.3 % (0-4.4); Hematocrit 22.9 % (36.0-45.0); Lymphocytes % 17.2 % (15.3-44.8); MCH 34.3 pg (27.0-35.0); MCV 104.6 fL (80-100); MPV 8.8 fL (7.6-11.3); Monocytes % 35.1 % (3.3-12.3); RBC Red Blood Cell Count 2.19 M/uL (3.86-4.86)
--- NOTE | 2017-12-19 10:33 | EDPHYS ---
Physician Documentation [facility] Name: Farida Estrella Age: 67 yrs Sex: Female : 1950 Arrival Date: 12/19/2017 Time: 08:40 Bed 15 Private MD: ED Physician Stefan Benito HPI: 12/19 08:52 This 67 yrs old Female presents to ER via EMS with complaints of General rn Weakness. 08:52 Reports non-bloody diarrhea for 1 week, no recent abx, denies abd pain/vomiting, rn reports generalized weakness, having to carry her, cannot stand, no diarrhea today, reports hasn't had chemo treatment in 2 weeks. . Onset: The symptoms/episode began/occurred 1 week(s) ago. Severity of symptoms: At their worst the symptoms were mild in the emergency department the symptoms are unchanged. The patient has experienced similar episodes in the past. The patient has been recently seen by a physician:. Historical: - Allergies: 08:45 Demerol; jl7 - PMHx: 08:45 COPD; multiple myeloma; CHF; jl7 - Social history:: Smoking status: Patient uses tobacco products, cigars, Patient/guardian denies using alcohol. - Family history:: not pertinent. - Hospitalizations: : No recent hospitalization is reported. ROS: 08:52 Constitutional: Negative for fever, chills, and weight loss, Eyes: Negative for injury, rn pain, redness, and discharge, Neck: Negative for injury, pain, and swelling, Cardiovascular: Negative for chest pain, palpitations, and edema, Respiratory: Negative for shortness of breath, cough, wheezing, and pleuritic chest pain, Abdomen/GI: Negative for abdominal pain, nausea, vomiting, and constipation, Back: Negative for injury and pain, MS/Extremity: Negative for injury and deformity, Skin: Negative for injury, rash, and discoloration, Neuro: Negative for headache, numbness, tingling, and seizure. Exam: 08:52 Constitutional: This is a well developed, well nourished patient who is awake, alert, rn and in no acute distress. Head/Face: Normocephalic, atraumatic. Neck: Trachea midline, no thyromegaly or masses palpated, and no cervical lymphadenopathy. Supple, full range of motion without nuchal rigidity, or vertebral point tenderness. No Meningismus. Cardiovascular: Regular rate and rhythm with a normal S1 and S2. No gallops, murmurs, or rubs. Normal PMI, no JVD. No pulse deficits. Respiratory: Lungs have equal breath sounds bilaterally, clear to auscultation and percussion. No rales, rhonchi or wheezes noted. No increased work of breathing, no retractions or nasal flaring. Abdomen/GI: Soft, non-tender, with normal bowel sounds. No distension or tympany. No guarding or rebound. No evidence of tenderness throughout. MS/ Extremity: Pulses equal, no cyanosis. Neurovascular intact. Full, normal range of motion. Equal circumference. Neuro: Awake and alert, GCS 15, oriented to person, place, time, and situation. Cranial nerves II-XII grossly intact. Motor strength 5/5 in all extremities. Sensory grossly intact. Vital Signs: 08:45 BP 107 / 45; Pulse 54; Resp 18 S; Temp 97.7(O); Pulse Ox 95% on 2 lpm NC; Weight 67.59 jl7 kg (R); Pain 0/10; 09:43 BP 102 / 44; Pulse 68; Resp 14; Pulse Ox 100% ; jl7 10:26 BP 108 / 51; Pulse 71; Resp 14; Pulse Ox 100% ; jl7 11:19 BP 113 / 53; Pulse 70; Resp 14; Pulse Ox 100% on 2 lpm NC; jl7 MDM: 08:40 Patient medically screened. rn 10:31 Differential Diagnosis dehydration, acute kidney injury, diarrhea. Data reviewed: vital rn signs, nurses notes, lab test result(s), EKG, and as a result, I will admit patient. Counseling: I had a detailed discussion with the patient and/or guardian regarding: the historical points, exam findings, and any diagnostic results supporting the discharge/admit diagnosis, lab results, the need for further work-up and treatment in the hospital. Response to treatment: the patient's symptoms have mildly improved after treatment, and as a result, I will admit patient. Admission orders: after a detailed discussion of the patient's condition and case, the admit orders are written by me. 12/19 08:50 Order name: Basic Metabolic Panel rn 12/19 08:50 Order name: CBC with Diff rn 12/19 08:50 Order name: Creatinine for nutrition internship 12/19 08:50 Order name: Hepatic Function rn 12/19 08:50 Order name: Lipase; Complete Time: 10:22 rn 12/19 08:50 Order name: Urine Microscopic Only rn 12/19 08:50 Order name: Urine Culture rn 12/19 08:50 Order name: Blood Culture Adult (2) rn 12/19 08:50 Order name: Procalcitonin; Complete Time: 10:31 rn 12/19 08:50 Order name: Lactate; Complete Time: 10:22 rn 12/19 08:51 Order name: Basic Metabolic Panel; Complete Time: 10:22 EDMS 12/19 08:51 Order name: CBC with Automated Diff EDMS 12/19 08:51 Order name: Creatinine (Radiology Only); Complete Time: 10:22 EDMS 12/19 08:51 Order name: Liver (Hepatic) Function; Complete Time: 10:22 EDMS 12/19 08:50 Order name: IV Saline Lock; Complete Time: 09:41 rn 12/19 08:50 Order name: Labs collected and sent; Complete Time: 09:42 rn 12/19 09:58 Order name: Labs - recollect needed; Complete Time: 10:17 12/19 10:38 Order name: Manual Differential EDMS Administered Medications: 09:25 Drug: NS 0.9% 500 ml Route: IV; Rate: bolus; Site: right antecubital; jl7 10:00 Follow up: Response: No adverse reaction; IV Status: Completed infusion jl7 11:18 Drug: NS 0.9% 1000 ml Route: IV; Rate: 125 ml/hr; Site: right antecubital; jl7 11:18 Follow up: IV Status: Infusion continued upon admission jl7 Disposition: 12/19/17 10:33 Hospitalization ordered by Vic Allen for Inpatient Admission. Preliminary diagnosis are Dehydration, Acute kidney failure, unspecified, Weakness. - Bed requested for Telemetry/MedSurg (Inpatient). - Status is Inpatient Admission. jl7 - Condition is Stable. - Problem is an ongoing problem. - Symptoms have improved. UTI on Admission? No Signatures: Dispatcher [employer] EDMS Earline Schultz Roman, MD MD rn Leal, Jahala, RN RN jl7 Corrections: (The following items were deleted from the chart) 11:06 10:33 Hospitalization Ordered by Vic Allen MD for Inpatient Admission. Preliminary bd diagnosis is Dehydration; Acute kidney failure, unspecified; Weakness. Bed requested for Telemetry/MedSurg (Inpatient). Status is Inpatient Admission. Condition is Stable. Problem is an ongoing problem. Symptoms have improved. UTI on Admission? No. rn 11:30 11:06 12/19/2017 10:33 Hospitalization Ordered by Vic Allen MD for Inpatient jl7 Admission. Preliminary diagnosis is Dehydration; Acute kidney failure, unspecified; Weakness. Bed requested for Telemetry/MedSurg (Inpatient). Status is Inpatient Admission. Condition is Stable. Problem is an ongoing problem. Symptoms have improved. UTI on Admission? No. bd
--- NOTE | 2017-12-19 10:33 | ER ---
Nurse's Notes [facility] Name: Farida Estrella Age: 67 yrs Sex: Female : 1950 Arrival Date: 12/19/2017 Time: 08:40 Bed 15 Private MD: Diagnosis: Dehydration;Acute kidney failure, unspecified;Weakness Presentation: 12/19 08:40 Presenting complaint: EMS states: Generalized weakness for 2 days, fell yesterday and jl7 c/o right leg pain, diarrhea x3 yesterday. Transition of care: patient was not received from another setting of care. Onset of symptoms was December 17, 2017. Initial Sepsis Screen: Does the patient meet any 2 criteria? No. Patient's initial sepsis screen is negative. Does the patient have a suspected source of infection? No. Patient's initial sepsis screen is negative. Care prior to arrival: None. 08:40 Method Of Arrival: EMS: [facility] jl7 08:40 Acuity: JONATHON 3 jl7 Triage Assessment: 08:46 General: Appears in no apparent distress. comfortable, Behavior is calm, cooperative. jl7 Pain: Denies pain. EENT: No signs and/or symptoms were reported regarding the EENT system. Neuro: Level of Consciousness is awake, alert, obeys commands, Oriented to person, place, time, situation. Cardiovascular: Patient's skin is warm and dry. Respiratory: Airway is patent Respiratory effort is even, unlabored, Respiratory pattern is regular, symmetrical. GI: Abdomen is flat, non-distended, Reports diarrhea, 3 times yesterday. Denies diarrhea today Patient currently denies nausea, vomiting. : No signs and/or symptoms were reported regarding the genitourinary system. Derm: Skin is dry, Skin is pale, Skin temperature is warm. Musculoskeletal: No signs and/or symptoms reported regarding the musculoskeletal system. Historical: - Allergies: 08:45 Demerol; jl7 - PMHx: 08:45 COPD; multiple myeloma; CHF; jl7 - Social history:: Smoking status: Patient uses tobacco products, cigars, Patient/guardian denies using alcohol. - Family history:: not pertinent. - Hospitalizations: : No recent hospitalization is reported. Screenin:00 Abuse screen: Denies threats or abuse. Denies injuries from another. Nutritional jl7 screening: No deficits noted. Tuberculosis screening: No symptoms or risk factors identified. Fall Risk Fall in past 12 months (25 points). No secondary diagnosis (0 pts). IV access (20 points). Ambulatory Aid- Crutches/Cane/Walker (15 pts). Gait- Weak (10 pts.). Mental Status- Oriented to own ability (0 pts). Total Mello Fall Scale indicates High Risk Score (45 or more points). Fall prevention measures have been instituted. Side Rails Up X 2 Placed Close to Nursing Station Frequent Obs/Assessments Occuring Family Present and informed to notify staff if the need to leave the bedside As available patient and family educated on Fall Prevention Program and Strategies. Assessment: 08:40 General: See triage assessment. jl7 09:30 Reassessment: No changes from previously documented assessment. Patient and/or family jl7 updated on plan of care and expected duration. Pain level reassessed. Patient is alert, oriented x 3, equal unlabored respirations, skin warm/dry/pink. 10:22 Reassessment: Hgb 7.5 and Plt 14, provider notified. jl7 11:19 Reassessment: No changes from previously documented assessment. Patient and/or family jl7 updated on plan of care and expected duration. Pain level reassessed. Patient is alert, oriented x 3, equal unlabored respirations, skin warm/dry/pink. Vital Signs: 08:45 BP 107 / 45; Pulse 54; Resp 18 S; Temp 97.7(O); Pulse Ox 95% on 2 lpm NC; Weight 67.59 jl7 kg (R); Pain 0/10; 09:43 BP 102 / 44; Pulse 68; Resp 14; Pulse Ox 100% ; jl7 10:26 BP 108 / 51; Pulse 71; Resp 14; Pulse Ox 100% ; jl7 11:19 BP 113 / 53; Pulse 70; Resp 14; Pulse Ox 100% on 2 lpm NC; jl7 ED Course: 08:40 Patient arrived in ED. jl7 08:40 Stefan Benito MD is Attending Physician. rn 08:44 Triage completed. jl7 08:45 Arm band placed on right wrist. jl7 08:45 Patient has correct armband on for positive identification. Bed in low position. Call jl7 light in reach. Side rails up X2. Pulse ox on. NIBP on. 08:54 Dannielle Avendaño, PEREZ is Primary Nurse. jl7 10:00 Initial lab(s) drawn, by de, sent to lab. Inserted saline lock: 20 gauge in right 7 antecubital area, using aseptic technique. Blood collected. 10:32 Vic Allen MD is Hospitalizing Provider. rn 10:34 Basic Metabolic Panel Sent. jl7 10:34 CBC with Diff Sent. jl7 10:35 Creatinine for Radiology Sent. jl7 10:35 Hepatic Function Sent. jl7 11:30 No provider procedures requiring assistance completed. Patient admitted, IV remains in jl7 place. Administered Medications: 09:25 Drug: NS 0.9% 500 ml Route: IV; Rate: bolus; Site: right antecubital; jl7 10:00 Follow up: Response: No adverse reaction; IV Status: Completed infusion jl7 11:18 Drug: NS 0.9% 1000 ml Route: IV; Rate: 125 ml/hr; Site: right antecubital; jl7 11:18 Follow up: IV Status: Infusion continued upon admission jl Outcome: 10:33 Decision to Hospitalize by Provider. rn 11:29 Admitted to Tele accompanied by tech, family with patient, via stretcher, room 422, [facility] with oxygen, with chart, Report called to PEREZ Banda 11:29 Discharge instructions given to patient, family, Instructed on the need for admit, Demonstrated understanding of instructions. 11:30 Condition: stable jl7 11:30 Patient left the ED. [facility] Signatures: Stefan Benito MD MD rn Leal, Jahala, RN RN jl7 Corrections: (The following items were deleted from the chart) 11:20 08:45 BP 107 / 45; Pulse 54bpm; Resp 18bpm; Spontaneous; Pulse Ox 95% RA; Temp 97.7F jl7 Oral; 67.59 kg Reported; Pain 0/10; jl7 11:30 10:00 Admitted to Tele accompanied by tech, family with patient, via stretcher, room [facility] 422, with oxygen, with chart, Report called to PEREZ Banda jl 11:30 10:00 Condition: stable [place] [id number] 11:30 10:00 Discharge instructions given to patient, family, Instructed on the need for [facility] admit, Demonstrated understanding of instructions, [facility]
[2017-12-19] MEDS ORDERED: NA CHLORIDE 0.9% 1,000 ML ONE (11:26)
[2017-12-19] MEDS ORDERED: NA CHLORIDE 0.9% 1,000 ML IV SCH (12:07)
[2017-12-19] MEDS ORDERED: ACETAMINOPHEN 500 MG TAB PO PRN (12:07)
[2017-12-19] MEDS ORDERED: ONDANSETRON 4 MG/2 ML VIAL IV PRN (12:07)
[2017-12-19 12:40] LABS: Anisocytosis 3+; Blood Morphology Comment NOTED (NOT SEEN); Platelet Estimate DECR
[2017-12-19 14:14] LABS: Absolute Lymphocytes (CBC) 0.5 K/uL (0.7-4.9); Absolute Monocytes 0.8 K/uL (0.1-1.3); Absolute Neutrophil 1.3 K/uL (1.8-8.0); Basophils % 0.4 % (0-1.3); Eosinophils % 3.6 % (0-4.4); Hematocrit 25.4 % (36.0-45.0); Lymphocytes % 19.9 % (15.3-44.8); MCH 33.9 pg (27.0-35.0); MCV 106.3 fL (80-100); MPV 8.9 fL (7.6-11.3); Monocytes % 28.2 % (3.3-12.3); RBC Red Blood Cell Count 2.38 M/uL (3.86-4.86)
[2017-12-19 14:35] LABS: Potassium 6.3 mEq/L (3.6-5.0)
[2017-12-19] MEDS ORDERED: SOD POLYSTYREN SUL 15 GM/60 ML UCUP PO ONE ×2 (14:37→21:03)
[2017-12-19 19:52] LABS: Potassium 5.8 mEq/L (3.6-5.0)
[2017-12-19] MEDS ORDERED: SODIUM BICARB 50 MEQ/50ML VIAL ONE ×2 (20:58→22:22)
[2017-12-19] MEDS ORDERED: D5W 1,000 ML IV ONE (20:59)
[2017-12-19] MEDS ORDERED: D5W 1,000 ML with NA BICARB 8.4% 50 MEQ IV SCH ×2 (21:00)
--- NOTE | 2017-12-19 21:04 | P.HP ---
Certification for Inpatient Patient admitted to: Inpatient With expected LOS: >2 Midnights Practitioner: I am a practitioner with admitting privileges, knowledge of patient current condition, hospital course, and medical plan of care. Services: Services provided to patient in accordance with Admission requirements found in Title 42 Section 412.3 of the Code of Federal Regulations Patient History Date of Service: 12/19/17 Reason for admission: DIARRHEA, WEAKNESS History of Present Illness: MRS. MORE IS A MYELOMA PATIENT WHO HAS HAD VERY ACTIVE CHEMOTHERAPY GIVEN OVER LAST FEW YEARS. HER PLATELET COUNT STAYS ABOUT 15K. THIS TIME SHE COMES WITH DIARRHEA AND SEVERE WEKNESS. SHE HAD ACUTE RENAL FAILURE. Allergies meperidine [From Demerol] Allergy (Verified 11/03/17 08:59) Unknown Home Medications: Metoprolol Succinate [Toprol Xl*] 50 mg PO DAILY 09/12/16 Pregabalin [Lyrica] 75 mg PO BID 08/01/17 Tramadol HCl [Ultram] 50 mg PO Q6HR PRN 08/01/17 B12/Levomefolate Calcium/B-6 [Foltx Tablet] 1 tab PO DAILY 09/13/17 Allopurinol 100 mg PO DAILY 12/19/17 Folic Acid 1 mg PO DAILY 12/19/17 Pomalidomide [Pomalyst] 2 mg PO DAILY 12/19/17 Potassium Chloride 20 meq PO BID 12/19/17 - Past Medical/Surgical History Has patient received pneumonia vaccine in the past: Yes Diabetic: No -: multiple myeloma -: HTN -: COPD -: chemo -: ceasarian X2 -: byopsy -: cataract aron eye -: hysterectomey - Family History Mother -: Diabetes, Cancer Brother -: Cancer - Social History Smoking Status: Current every day smoker Alcohol use: No CD- Drugs: No Caffeine use: Yes Place of Residence: Home Review of Systems 10-point ROS is otherwise unremarkable General: Weakness, Malaise Physical Examination - Vital Signs Temperature: 98.1 F Blood Pressure: 111/54 Pulse: 70 Respirations: 18 Pulse Ox (%): 99 - Physical Exam General: Alert, Moderate distress HEENT: Atraumatic, PERRLA, Mucous membr. moist/pink, EOMI, Sclerae nonicteric Neck: Supple, 2+ carotid pulse no bruit, No LAD, Without JVD or thyroid abnormality Respiratory: Clear to auscultation bilaterally, Normal air movement Cardiovascular: Regular rate/rhythm, Normal S1 S2 Gastrointestinal: Normal bowel sounds, No tenderness Musculoskeletal: No tenderness Integumentary: No rashes Neurological: Normal gait, Normal speech, Normal strength at 5/5 x4 extr, Normal tone, Normal affect Lymphatics: No axilla or inguinal lymphadenopathy - Studies Laboratory Data (last 24 hrs) 12/19/17 10:08: WBC 2.5 L, Hgb 7.5 L*, Hct 22.9 L, Plt Count 14 L* 12/19/17 09:15: Creatinine 4.04 H 12/19/17 09:15: Sodium 139, Potassium 5.9 H*, BUN 41 H, Creatinine 4.12 H D, Glucose 96, Total Bilirubin 0.4, AST 36, ALT 31, Alkaline Phosphatase 79, Lipase 16 L Assessment and Plan - Problems (Diagnosis) (1) Acute renal failure Current Visit: Yes Status: Acute Plan: IV FLUIDS D5W WITH NAHCO3 CONSULT DR[address] WERNER CERNA ONE DOSE BROUGHT K DOWN TO 5.8 PROGNOSIS POOR. (2) Hyperkalemia Current Visit: Yes Status: Acute Plan: ABOVE (3) Thrombocytopenia Current Visit: Yes Status: Chronic Plan: FU WITH HER MIDWIFE PRACTITIONER HERE. NO ACUTE BLEEDING. (4) Multiple myeloma Onset Date: 08/03/17 Current Visit: No Status: Chronic Qualifiers: - Advance Directives Does patient have a Living Will: No Does patient have a Durable POA for Healthcare: No
[2017-12-19] MEDS ORDERED: D5W 300 ML IV SCH (22:00)
[2017-12-19] MEDS: D5W 1,000 ML with NA BICARB 8.4% 75 MEQ IV SCH ×2 (22:25)
[2017-12-20 06:32] LABS: Absolute Lymphocytes (CBC) 0.4 K/uL (0.7-4.9); Absolute Monocytes 0.6 K/uL (0.1-1.3); Basophils % 1.1 % (0-1.3); Eosinophils % 3.2 % (0-4.4); Hematocrit 22.3 % (36.0-45.0); Lymphocytes % 18.3 % (15.3-44.8); MCH 34.8 pg (27.0-35.0); MCV 102.9 fL (80-100); MPV 8.7 fL (7.6-11.3); Monocytes % 28.5 % (3.3-12.3); RBC Red Blood Cell Count 2.17 M/uL (3.86-4.86)
[2017-12-20 07:30] LABS: BUN Blood Urea Nitrogen 41 mg/dL (6-20)
[2017-12-20 07:40] LABS: Bicarbonate 16 mEq/L (21-31); Glucose Level 96 mg/dL (65-120); Magnesium 1.7 mg/dL (1.8-2.5); Phosphorus 5.4 mg/dL (2.5-4.3); Potassium 4.9 mEq/L (3.6-5.0); Sodium Level 141 mEq/L (135-145); Uric Acid 10.2 mg/dL (2.6-8.0)
[2017-12-20 07:41] LABS: Folic Acid, (Folate) > 22.3 ng/ml (>5.21)
[2017-12-20 08:20] LABS: Urine Bilirubin NEGATIVE (NEG); Urine Blood NEGATIVE (NEG); Urine Color YELLOW; Urine Glucose NEGATIVE (NEG); Urine Protein 1+ (NEG); Urine Urobilinogen 0.2 mg/dL (0.2-1.0)
[2017-12-20 08:23] LABS: Urine Appearance HAZY
[2017-12-20 08:27] LABS: UR CREAT 75.8 mg/dL; UR MICROALBUMIN 13.3 mg/dL (< 1.9)
[2017-12-20] MEDS: D5W 1,000 ML with NA BICARB 8.4% 75 MEQ IV SCH ×4 (08:45→19:30)
[2017-12-20 09:11] LABS: Urine Amorphous Sediment TRACE /HPF (NONE SEEN); Urine Bacteria 20-50 /HPF (<20); Urine Culture Reflex Order NOT NEEDED; Urine RBC <5 /HPF (NONE SEEN)
[2017-12-20] MEDS ORDERED: NA CHLORIDE 0.9% 250 ML ONE (10:26)
[2017-12-20 10:55] LABS: Absolute Lymphocytes (CBC) 0.7 K/uL (0.7-4.9); Absolute Monocytes 0.7 K/uL (0.1-1.3); Absolute Neutrophil 1.3 K/uL (1.8-8.0); Basophils % 1.1 % (0-1.3); Hematocrit 24.3 % (36.0-45.0); Lymphocytes % 25.2 % (15.3-44.8); MCH 33.7 pg (27.0-35.0); MCV 102.5 fL (80-100); MPV 8.8 fL (7.6-11.3); Monocytes % 26.5 % (3.3-12.3); RBC Red Blood Cell Count 2.37 M/uL (3.86-4.86)
--- NOTE | 2017-12-20 11:32 | RAD REPORT ---
EXAM DESCRIPTION: CT - Head Brain Wo Cont - 12/20/2017 11:24 am CLINICAL HISTORY: multiple myeloma ams COMPARISON: None. TECHNIQUE: Axial 5 mm thick images of the head were obtained without IV contrast. All CT scans are performed using dose optimization technique as appropriate and may include automated exposure control or mA/KV adjustment according to patient size. FINDINGS: No intracranial hemorrhage, mass, edema or shift of mid-line structures. No acute cortical based infarction. No cortical edema or sulcal effacement. Ventricles are normal. No abnormal extra-a xial fluid collections. Artifact is seen along the inner table due to motion. Mastoid air cells and visualized portions of the paranasal sinuses are clear. No acute bony findings. IMPRESSION: No mass, hemorrhage, edema or other acute intracranial finding.
[2017-12-20] MEDS ORDERED: Meropenem 500 MG VIAL IV SCH (11:47)
[2017-12-20] MEDS ORDERED: Pharmacy Consult 1 EA XX PRN (11:48)
--- NOTE | 2017-12-20 11:52 | P.CNS ---
Date of Consult: 12/20/17 Reason for Consult: Altered mental status Chief Complaint: DIARRHEA, WEAKNESS History of Present Illness: Patient is 67 years of age presented with generalized weakness fall leg pain diarrhea history of multiple myeloma is and has renal failure is been a change in her mental status she was then transferred here to the ICU. CT scan of the head done patient at this time is nonresponsive shivering hemodynamically stable oxygenation satisfactory apparently she is fairly alert responsive cooperative and able to make her own decisions Allergies meperidine [From Demerol] Allergy (Verified 11/03/17 08:59) Unknown Home Medications: Metoprolol Succinate [Toprol Xl*] 50 mg PO DAILY 09/12/16 Pregabalin [Lyrica] 75 mg PO BID 08/01/17 Tramadol HCl [Ultram] 50 mg PO Q6HR PRN 08/01/17 B12/Levomefolate Calcium/B-6 [Foltx Tablet] 1 tab PO DAILY 09/13/17 Allopurinol 100 mg PO DAILY 12/19/17 Folic Acid 1 mg PO DAILY 12/19/17 Pomalidomide [Pomalyst] 2 mg PO DAILY 12/19/17 Potassium Chloride 20 meq PO BID 12/19/17 - Past Medical/Surgical History Diabetic: No -: multiple myeloma -: HTN -: COPD -: chemo -: ceasarian X2 -: byopsy -: cataract aron eye -: hysterectomey - Family History Mother Medical History: Diabetes, Cancer Brother Medical History: Cancer - Social History Smoking Status: Current some day smoker Alcohol use: No CD- Drugs: No Caffeine use: Yes Place of Residence: Home Review of Systems is unable to be obtained Physical Examination Temp Pulse Resp BP Pulse Ox 97.7 F 94 H 16 132/44 L 95 12/20/17 07:41 12/20/17 07:41 12/20/17 07:41 12/20/17 07:41 12/20/17 07:41 General: Unresponsive HEENT: Atraumatic Neck: Supple Respiratory: Clear to auscultation bilaterally Cardiovascular: No edema, Regular rate/rhythm Gastrointestinal: Normal bowel sounds, Soft and benign - Problems (1) Altered mental status Current Visit: Yes Status: Acute Plan: Patient is 67 years of age admitted with altered mental status she has a history of multiple myeloma and chronic renal failure CT scan of the head is negative I have ordered a chest x-ray patient is pancytopenic cultures are so far negative cover broad-spectrum antibiotics vancomycin and meropenem chest x- ray pending sats satisfactory patient will need an ABG
[2017-12-20 12:05] LABS: Arterial Blood Carboxyhemoglob 1.4 % (0-1.5); Blood Gas Oxyhemoglobin 87.6 % (94-97); Blood O2 Saturation 89.6 % (92-98.5)
--- NOTE | 2017-12-20 12:45 | RAD REPORT ---
EXAM DESCRIPTION: RAD - Chest Single View - 12/20/2017 12:36 pm CLINICAL HISTORY: Chest pain. COMPARISON: 10/17/2017 FINDINGS: Portable technique limits examination quality. The lungs are grossly clear. The heart is mildly prominent size. No displaced fractures.Calcified danielle ast implants noted. IMPRESSION: No acute intrathoracic process suspected. The left lower lobe is somewhat poorly assesse d due to superimposition of soft tissues.
[2017-12-20] MEDS: Meropenem 500 MG in NA CHLORIDE 0.9% 100 ML IV SCH ×2 (13:07→20:30)
[2017-12-20] MEDS ORDERED: VANCOMYCIN 1.25 GM in NA CHLORIDE 0.9% 250 ML IVPB SCH (14:00)
[2017-12-20] MEDS: THIAMINE 200 MG/2 ML INJ IVP SCH (14:16)
[2017-12-20] MEDS ORDERED: ACETAMINOPHEN 650MG/RECT SUPP PR PRN (14:57)
--- NOTE | 2017-12-20 17:35 | P.PN ---
Date of Service: 12/20/17 (HEMATOLOGY/ONCOLOGY) Pt seen and examined around 1pm today. and daughter at bedside. She is known to our service, following Dr Stewart, for long standing history of High risk Multiple myeloma. She primarily follows Dr Ford (Dept. of Myeloma) in [facility]. 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 Currently on Elotuzumab/ Pomalidomide/ Dexamethasone (last dose of elotuzumab on 12/05/17). She has ongoing chronic myelosuppression, requiring transfusions as and when required. She was advised to go to ER when she reported generalized weakness, fall, and also multiple episodes of diarrhea. She was noted to be pancytopenic with a wbc 2.8/ Hb of 7.5/ plt 14, worsening renal failure with BUN.Cr 41/4.74. She had sudden alteration in mentation with a possible seizure like activity when she was transferred to the ICU for close monitoring. CT head has been reported negative for any acute event. Currently on broad spectrum coverage with Vancomycin and meropenem. Apparently she has been saturating at 90% on 2 L O2. Also on a bicarb drip. Pulmonary, Neurology and Nephrology has been consulted. When seen in ICU, she is responsive to deep stimuli only. Vitals reviewed Afebrile, HR 105, BP 142/47. RR 29 Gen: AT/NC/ Not arousable, appears pale RS: b/l basal crackles CVS- S1S2 wnl, tachycardic Abd: soft BS+ Neuro: grimaces to deep stimuli Labs reviewed. Assessment/ Recommendations High risk Myeloma with poor cytogenetics: She has been on multiple treatment regimens with evidence of disease progression lately. Currently on Elotuzumab/ pomalidomide/ Dexamethasone. Pt has been pancytopenic for a while with baseline wbc around 2000/ Hb around 8-10/ plt count around 20,000-40,000. New AMS is worrisome. Possible differentials include infectious, metabolic, leptomeningeal disease. I am concerned about possible opportunistic infections due to chronic immunosuppressed state. Recommend broad spectrum antibiotic coverage, which ofcourse is challenging given worsening renal failure. [place] culture, check stool studies for ova cysts, parasites, c- diff toxin. Recommend ID consultation. Discussed with Neurology for clinical evaluation of altered mental status/ possibility of menongoencephalitis given fever in the setting of AMS. Given advanced myeloma, there is definitely a concern for leptomeningeal disease contributing to her AMS. Please do MRI brain to assess leptomeningeal disease. Supportive PRBC transfusion to keep Hb >8. WBC 2.5 with adequate ANC. No need for G-CSF at this time. Transfuse single donor plts if plt count less than 15,000 or if bleeding. For adequate plt count for possible lumbar puncture, recommend plt transfusion with 2 units single donor platelets. A cbc should be done in 1 hour post transfusion. Labs SPEP/VIANNEY, Serum free light chains, IgA/IgG/IgM will be helpful to assess disease response/ progression to the recent regimen. Closely monitor cbc. She has multiple complications at this time which will be very challenging to optimize. Discussed with Dr Efraín Ford ([facility]) about patient's clinical deterioration. She seems to be progressing with poor response to multiple treatment regimens lately with very poor prognosis at this point. I will also discuss with family about hospice care/ best supportive care given worsening of clinical status. Apparently pt had expressed to Dr Ford about her wish to be DNR in September 2017. Follow up Neurology and renal recommendations. Rest of care as per primary medical team. Addendum 12/20/17 6pm I had a lengthy discussion with patient's about her current critical condition and possible differentials as mentioned above. He understands that Ms. Estrella is very ill and possibility that she might further deteriorate. I also suggested best supportive/ Hospice care given her clinical deterioration He did not answer or wish to make decison at this time. He requested to discuss again tomorrow when his daughter is available.
--- NOTE | 2017-12-20 17:55 | P.PN ---
Subjective Date of Service: 12/20/17 Chief Complaint: DIARRHEA, WEAKNESS Subjective: Worsening (TODAY OBTUNDED AND STARTED TO SHAKE. YESTERDAY AT LUNCH SHE WAS ABLE TO COMMUNICATE NORMALLY.) Review of Systems 10-point ROS is otherwise unremarkable General: Weakness, Malaise Neurological: Confusion (OBTUNDED NOT ABLE TO COMMUNICATE NORMALLY. NON VERBAL.) Physical Examination - Vital Signs Temperature: 97.7 F Blood Pressure: 140/54 Pulse: 111 Respirations: 18 Pulse Ox (%): 98 - Physical Exam General: Moderate distress, Confused, Unresponsive HEENT: Atraumatic, PERRLA, EOMI Neck: Supple, JVD not distended Respiratory: Clear to auscultation bilaterally, Normal air movement Cardiovascular: Regular rate/rhythm, Normal S1 S2 Gastrointestinal: Normal bowel sounds, No tenderness Musculoskeletal: No tenderness Integumentary: No rashes Neurological: Other (MOVES ON PAINFUL STIMULUS , NOT AWAKE.) Lymphatics: No axilla or inguinal lymphadenopathy - Studies Medications List Reviewed: Yes Assessment And Plan - Current Problems (Diagnosis) (1) Acute renal failure Onset Date: 12/20/17 Current Visit: Yes Status: Acute Plan: IV FLUIDS D5W WITH NAHCO3 CONSULT DR. WERNER CERNA ONE DOSE BROUGHT K DOWN TO 5.8 PROGNOSIS POOR. (2) Hyperkalemia Onset Date: 12/20/17 Current Visit: Yes Status: Acute Plan: ABOVE (3) Thrombocytopenia Onset Date: 12/20/17 Current Visit: Yes Status: Chronic Plan: FU WITH HER PRODUCT ENGINEER HERE. NO ACUTE BLEEDING. 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 - Code Status/Comfort Care Code Status: Do Not Resuscitate (TALKED TO .)
[2017-12-20 19:45] LABS: Hematocrit 29.6 % (36.0-45.0)
[2017-12-20 20:01] LABS: Protime INR 1.32
[2017-12-20] MEDS: CEFTRIAXONE 2,000 MG in NA CHLORIDE 0.9% 100 ML IV SCH (20:30)
[2017-12-20] MEDS ORDERED: CEFTRIAXONE/SWI 2gm 2 GM/20 ML SYR IVP SCH (21:00)
[2017-12-20] MEDS ORDERED: ACYCLOVIR IVPB SCH ×4 (21:00)
[2017-12-20] MEDS ORDERED: NA CHLORIDE 0.9% IVPB SCH ×4 (21:00)
--- NOTE | 2017-12-20 22:01 | P.CNS ---
Date of Consult: 12/20/17 Reason for Consult: TE Requesting Physician: Vic Allen V Chief Complaint: DIARRHEA, WEAKNESS History of Present Illness: 08:52 This 67 yrs old Female presents to ER via EMS with complaints of General rn Weakness. 08:52 Reports non-bloody diarrhea for 1 week, no recent abx, denies abd pain/ vomiting, rn reports generalized weakness, having to carry her, cannot stand, no diarrhea today, reports hasn't had chemo treatment in 2 weeks. . Onset: The symptoms/episode began/occurred 1 week(s) ago. Severity of symptoms: At their worst the symptoms were mild in the emergency department the symptoms are unchanged. The patient has experienced similar episodes in the past. The patient has been recently seen by a physician:. Allergies meperidine [From Demerol] Allergy (Verified 11/03/17 08:59) Unknown Home medications list reviewed: Yes Home Medications: Metoprolol Succinate [Toprol Xl*] 50 mg PO DAILY 09/12/16 Pregabalin [Lyrica] 75 mg PO BID 08/01/17 Tramadol HCl [Ultram] 50 mg PO Q6HR PRN 08/01/17 B12/Levomefolate Calcium/B-6 [Foltx Tablet] 1 tab PO DAILY 09/13/17 Allopurinol 100 mg PO DAILY 12/19/17 Folic Acid 1 mg PO DAILY 12/19/17 Pomalidomide [Pomalyst] 2 mg PO DAILY 12/19/17 Potassium Chloride 20 meq PO BID 12/19/17 - Past Medical/Surgical History Diabetic: No -: multiple myeloma -: HTN -: COPD -: chemo -: ceasarian X2 -: byopsy -: cataract aron eye -: hysterectomey - Family History Mother Medical History: Diabetes, Cancer Brother Medical History: Cancer - Social History Smoking Status: Current some day smoker Alcohol use: No CD- Drugs: No Caffeine use: Yes Place of Residence: Home Review of Systems is unable to be obtained (AMS) Physical Examination Temp Pulse Resp BP Pulse Ox 98.0 F 109 H 21 H 127/74 99 12/20/17 20:30 12/20/17 20:30 12/20/17 20:30 12/20/17 20:30 12/20/17 20:30 General: In no apparent distress, Delirious HEENT: Atraumatic, Other (DMM) Neck: Supple Respiratory: Clear to auscultation bilaterally Cardiovascular: No edema, Regular rate/rhythm, No rubs Gastrointestinal: Hypoactive, Non-distended, Tenderness Musculoskeletal: No clubbing, No contractures Integumentary: No rashes, No cyanosis Urinary: Dialysis catheter External genitalia: No edema Serum creatinine 4.74 Blood work reviewed in the chart. Imagings Data: EXAM DESCRIPTION: RAD - Chest Single View - 12/20/2017 12:36 pm CLINICAL HISTORY: Chest pain. COMPARISON: 10/17/2017 FINDINGS: Portable technique limits examination quality. The lungs are grossly clear. The heart is mildly prominent size. No displaced fractures.Calcified breast implants noted. IMPRESSION: No acute intrathoracic process suspected. The left lower lobe is somewhat poorly assessed due to superimposition of soft tissues. Conclusions/Impression: A/ TE. CKD III with proteinuria. Hyperkalemia. Acidosis. HyperPO4. Hypomagnesemia. Pancytopenia in the setting of Multiple Myeloma. AMS. P/ Continue current POC and Medications. IVF changed to bicarb gtt. Give IV bicarb as needed. Kayexalate X1. Agree with transfusion. No NSAIDs. AM labs. Daily weight. Thank you kindly for the consultation. Greater than 30 minutes patient care.
--- NOTE | 2017-12-21 00:49 | CON ---
Continuation: As noted, no source for potential infection has been discovered, consultation was requested. Past Medical History: Myeloma, hypertension, COPD. Medications: Normally Lyrica, Ultram, Toprol, allopurinol, folic acid _ potassium. Social History: . Normally independent basic activities of daily living. Family History: Noncontributory. Review of Systems: As alluded to in history of present illness, the patient is unable to give accurate review of systems currently. Physical Examination: Vital Signs: Temperature 97.7, pulse 115, respirations 27, blood pressure 136/ 53. General: She is awake with a sinus tachycardia. She is not intubated. She is not on pressor support. HEENT/Neurologic: Opens eyes to sternal rub. Does follow some commands intermittently. Pupils reactive. Ocular motion full. Blinks to threat. Will follow simple commands to raise her arms, squeeze hands, withdraws all extremities to pain. Reflexes 1/4. Toes are neutral. Cannot test gait or cerebellar. Pertinent Laboratory Data: White count 2.8, hemoglobin 10.1, platelets 17 after transfusion of platelets. PT 15.6, INR 1.3, PTT 25. CT as noted. Creatinine 4.7. B12 normal. Impression: Sepsis, rule out meningitis. Plan: I would suggest respiratory isolation. Ideally, we would perform lumbar puncture but with a platelet count of 17, that is not an ideal situation, especially with the renal failure with the platelets proper likely dysfunctional as well. She has a mild coagulopathy that may need to be addressed/corrected with elevated PT. I reviewed that with the , the recommendation for lumbar puncture as well as the patient's daughter to make a decision about the risks-benefit ratio of empirically treating the patient versus having the procedure done. I think the major risk with empiric treatment with vancomycin, ceftriaxone, and acyclovir other than the obvious risk of long-term antibiotics, C diff colitis, etc., would be that those medications are nephrotoxic and the patient has increase in creatinine while here in the hospital. So, for now, we will continue general supportive care, ceftriaxone acyclovir 10 mg/kg IV piggyback. She is already on vancomycin. Once family makes a decision, we will be able to further decide about length of treatment. Thank you for this consult. VICTORIA Voice ID: [id number] Report ID: [id number] JORDAN
--- NOTE | 2017-12-21 01:14 | CON ---
Date of Consultation: 12/20/2017 Time: 2009. Reason For Consultation: Altered mental status. History Of Present Illness: A 67-year-old lady with a history of myeloma, receiving chemotherapy, __ , dexamethasone. I would refer the reader to Hematology/Oncology note regarding the protocol there. She comes into the hospital with volume depletion; renal failure; altered mental status, det eriorated overnight, transferred to the intensive care unit, is now having fevers and confused, altho ugh she seems somewhat improved from earlier, although documented temp 102.5. Cultures are negative. CT scan unremarkable. Chest x-ray DICTATION ENDS HERE. LUANN/SAMANTA Voice ID: [id number] Report ID: [id number]
[2017-12-21 04:19] LABS: Absolute Lymphocytes (CBC) 0.5 K/uL (0.7-4.9); Absolute Monocytes 1.1 K/uL (0.1-1.3); Basophils % 0.7 % (0-1.3); Eosinophils % 1.3 % (0-4.4); Hematocrit 29.1 % (36.0-45.0); Lymphocytes % 12.6 % (15.3-44.8); MCH 32.9 pg (27.0-35.0); MCV 96.7 fL (80-100); MPV 9.4 fL (7.6-11.3); Monocytes % 29.8 % (3.3-12.3); RBC Red Blood Cell Count 3.01 M/uL (3.86-4.86)
[2017-12-21 04:53] LABS: Albumin 2.2 g/dL (3.2-5.5); Potassium 4.3 mEq/L (3.6-5.0); Protein, Total 8.2 g/dL (6.0-8.3)
[2017-12-21 04:59] LABS: Bilirubin Total 0.8 mg/dL (0.3-1.2); Uric Acid 10.6 mg/dL (2.6-8.0)
[2017-12-21] MEDS: D5W 1,000 ML with NA BICARB 8.4% 75 MEQ IV SCH ×2 (05:10)
--- NOTE | 2017-12-21 08:24 | RAD REPORT ---
EXAM DESCRIPTION: MRI - Brain Wo Cont - 12/20/2017 10:53 pm CLINICAL HISTORY: Altered consciousness. COMPARISON: 12/20/2017 TECHNIQUE: Multi-sequence, multiplanar MR imaging of the brain was performed without contrast. FINDINGS: The examination is mildly degraded by motion artifact.No acute hemorrhage, hydrocephalus, extra-axial fluid collection or midline shift suspected. 14 x 8 mm T2/FLAIR hyperintense oblong lesio n is present right basal ganglia anteriorly. Few small T2 and FLAIR hyperintensities are seen in the periventricular region. DWI is negative for acute CVA. Midline structures are normally formed. Mild fluid is seen in both mastoid air cells. Paranasal sinuses are otherwise clear. IMPRESSION: Nonspecific 14 x 8 mm T2/FLAIR hyperintense lesion right basal ganglia anteriorly noted. Postcontrast sequences through the brain would be useful to evaluate for enhancement in this region.
[2017-12-21] MEDS: THIAMINE 200 MG/2 ML INJ IVP SCH (08:45)
[2017-12-21] MEDS: Meropenem 500 MG in NA CHLORIDE 0.9% 100 ML IV SCH (08:45)
[2017-12-21] MEDS: CEFTRIAXONE 2,000 MG in NA CHLORIDE 0.9% 100 ML IV SCH (08:46)
[2017-12-21] MEDS ORDERED: CEFTRIAXONE/SWI 2gm 2 GM/20 ML SYR IV SCH (09:00)
[2017-12-21] MEDS ORDERED: D5W 1,000 ML with NA BICARB 8.4% 75 MEQ IV SCH ×2 (17:00)
--- NOTE | 2017-12-21 17:57 | PN ---
Date of Progress Note: 12/21/2017 Interval History: The patient is transferred to the ICU after she had a Code Yellow for altered ment al status. She is doing slightly better this morning. She was able to eat her breakfast and was abl e to eat some ice cream for her lunch. She has been very lethargic and weak otherwise. She continue s to be on sodium bicarbonate drip 1 amp of sodium bicarbonate at 100 cc an hour. She made about 400 cc of urine since this morning. Physical Examination: Vital signs: At this time are showing temperature of 98.6, pulse rate of 114, it is ranging between 120 to 140, respiratory rate of 24, blood pressure 133/63. General: She appears to be weak and lethargic. HEENT: She has atraumatic head. LUNGS: Auscultation of the lungs revealed bilateral equal air entry anteriorly. HEART: Auscultation heart revealed sinus tachycardia. ABDOMEN: Soft. EXTREMITIES: Without any evidence of edema. Laboratory Data: At this time showing sodium of 137, potassium 4.3, chloride of 114, bicarb of 17, B UN of 48, and creatinine of 5. CBC showing hemoglobin of 9.9, hematocrit 39.9, and platelet count of 16, and WBC count of 3.7. Current Medications: Include ceftriaxone 2 g every 12 hours, meropenem 500 mg every 12 hours, thiami ne, vancomycin every 48 hours and pharmacy consult for adjustment of medications and she is also on a cyclovir 640 mg every 24 hours. Urine culture showing evidence of urinary tract infection and blood cultures have been negative so far. Impression: 1.Acute renal insufficiency secondary to possibly from dehydration leading to acute tubular necrosis versus myeloma kidney. The patient is having some urine output and is not completely oliguric, whic h is good. I will continue IV fluids at this time as there are no signs of any volume overload. She still looks volume depleted. She still seems to be on volume depleted side still. We will continue D5 with 3 amps of sodium bicarbonate at this time. 2.Pancytopenia secondary to underlying myeloma with chemotherapy at this time, which is currently on hold. 3.Possible underlying sepsis. The patient is being treated with Rocephin, meropenem, and vancomycin along with acyclovir to cover for herpes encephalitis as well. I will discuss with pharmacy and deidre gill ceftriaxone to 1 g every 12 hours to adjust for her acute renal insufficiency. 4.Tachycardia, possibly related to underlying sepsis and dehydration. 5.Underlying multiple myeloma status post chemotherapy, currently being followed by Hematology/Oncol nj, which we will be discussing with the patient's family about possible hospice at this time. 6.Electrolyte abnormalities including acidosis and hyperkalemia, currently slowly improving with IV fluids and potassium has significantly improved after treatment with conservative measures. 7.Altered mental status, possibly related to infectious versus metabolic encephalopathy being monito red closely and she seems to be improving at this time. Plan: Overall patient's prognosis is guarded, but her urine output seems to be slowly improving. I will continue with the IV fluids. Discussed with the pharmacy about changing the Rocephin dosage to adjust for her renal function. Continue broad-spectrum antibiotics and monitor her renal function an d urine output closely. Avoid nephrotoxins and hypotension. We have also discussed with the family and updated them regarding her condition. VV/MODL Voice ID: [id number] Report ID: [id number]
[2017-12-21] MEDS ORDERED: METOPROLOL TARTRATE 5 MG/5 ML INJ IV PRN (18:29)
[2017-12-21] MEDS ORDERED: CEFTRIAXONE/SWI 1gm 1 GM/10 ML SYR IV SCH (21:00)
[2017-12-23 13:09] LABS: Immunoglobulin A 11 mg/dL (81-463); Immunoglobulin G 4485 mg/dL (694-1618); Immunoglobulin M 35 mg/dL (48-271)
[2017-12-23 21:42] LABS: Albumin, (SPE) 2.6 g/dL (3.8-4.8); Alpha-1-Globulins 0.4 g/dL (0.2-0.3); Alpha-2-Globulins 0.8 g/dL (0.5-0.9); Gamma Globulins 3.7 g/dL (0.8-1.7); INTERPRETATION REPORT
== END 2017-12-21 20:05 | disposition hospice, inpatient (51) | DRG 808 ==
LOC: ER 08:36 → ERHOLD 10:51 → 4TH 11:19 → 3RD-ICU 12-20 10:35 → 2ND 12-21 18:25
PROVIDERS: ADMIT Internal Medicine; ATTEND Internal Medicine
DX: D61.818 Other pancytopenia (principal); A41.9 Sepsis, unspecified organism; N17.0 Acute kidney failure with tubular necrosis; C90.00 Multiple myeloma not having achieved remission; N17.9 Acute kidney failure, unspecified; E87.2 Acidosis; E86.0 Dehydration; J44.9 Chronic obstructive pulmonary disease, unspecified; E87.5 Hyperkalemia; D69.6 Thrombocytopenia, unspecified; I12.9 Hypertensive chronic kidney disease with stage 1 through stage 4 chronic kidney disease, or unspecified chronic kidney disease; N18.3 Chronic kidney disease, stage 3 (moderate); E83.42 Hypomagnesemia; R00.0 Tachycardia, unspecified; F17.200 Nicotine dependence, unspecified, uncomplicated
CPT/HCPCS: 36415; 70450; 70551; 71045; 80048; 80053; 80076; 80202; 81001; 82043; 82570; 82607; 82746; 82784; 82805; 82962; 83516; 83605; 83690; 83735; 84100; 84145; 84165; 84300; 84550; 85014; 85018; 85025; 85610; 85730; 86334; 86850; 86900; 86901; 87040; 87086; 87088; 96360; 99285; J0133; J0696; J3411; J7030; P9016

== ENCOUNTER 2017-12-21 20:07 | Inpatient (IN) | payer BC, OTHER ==
[2017-12-21] MEDS ORDERED: MORPHINE/NS PCA 50 MG/50 ML PCA.SYRING IV PRN (20:39)
[2017-12-21] MEDS ORDERED: SCOPOLAMINE HYDROBROMIDE PATCH TD SCH (20:39)
[2017-12-21] MEDS ORDERED: LORazepam 2 MG/ML VIAL IV PRN (20:43)
[2017-12-21] MEDS ORDERED: ONDANSETRON 4 MG/2 ML VIAL IV PRN (20:43)
[2017-12-22] MEDS: Morphine 2 MG/2 ML SYR IV PRN (02:48)
[2017-12-22] MEDS ORDERED: NA CHLORIDE 0.9% 500 ML ONE (14:51)
--- NOTE | 2017-12-22 17:56 | P.HP ---
Certification for Inpatient Patient admitted to: Inpatient With expected LOS: >2 Midnights Patient will require the following post-hospital care: Hospice Practitioner: I am a practitioner with admitting privileges, knowledge of patient current condition, hospital course, and medical plan of care. Services: Services provided to patient in accordance with Admission requirements found in Title 42 Section 412.3 of the Code of Federal Regulations Patient History Date of Service: 12/22/17 Reason for admission: RENAL FAILURE, MYELOMA History of Present Illness: MRS MORE IS READMITTED WITH INPATIENT HOSPICE CARE AFTER CONSENT FROM . SHE IS TERMINAL WITH RENAL FAILURE , SEPSIS FROM MYELOMA. DR. FERRARA HAS RECOMMENDED HOSPICE AND I AGREE. [facility] HAS ADMITTED PATIENT AND I TOOK CARE OF ORDERS YESTERDAY. Allergies meperidine [From Demerol] Allergy (Verified 11/03/17 08:59) Unknown Home Medications: Metoprolol Succinate [Toprol Xl*] 50 mg PO DAILY 09/12/16 Pregabalin [Lyrica] 75 mg PO BID 08/01/17 Tramadol HCl [Ultram] 50 mg PO Q6HR PRN 08/01/17 B12/Levomefolate Calcium/B-6 [Foltx Tablet] 1 tab PO DAILY 09/13/17 Allopurinol 100 mg PO DAILY 12/19/17 Folic Acid 1 mg PO DAILY 12/19/17 Pomalidomide [Pomalyst] 2 mg PO DAILY 12/19/17 Potassium Chloride 20 meq PO BID 12/19/17 Apixaban [Eliquis] 5 mg PO BID 12/22/17 Diphenoxylate HCl/Atropine [Diphenoxylate-Atrop 2.5-0.025] 1 tab PO DIRECTED PRN 12/22/17 Omeprazole [Prilosec] 40 mg PO DAILY 12/22/17 Valacyclovir HCl [Valtrex] 500 mg PO DAILY 12/22/17 - Past Medical/Surgical History Diabetic: No -: multiple myeloma -: HTN -: COPD -: chemo -: ceasarian X2 -: byopsy -: cataract aron eye -: hysterectomey - Family History Mother -: Diabetes, Cancer Brother -: Cancer - Social History Smoking Status: Former smoker Alcohol use: Yes CD- Drugs: No Caffeine use: Yes Place of Residence: Home Review of Systems General: Weakness, Malaise Respiratory: Shortness of Breath Neurological: Confusion, Other (AGITATION SOME) Physical Examination - Vital Signs Temperature: 98.2 F Blood Pressure: 129/60 Pulse: 105 Respirations: 17 Pulse Ox (%): 97 - Physical Exam General: Moderate distress, Delirious, Other (PALE , WEAK, BED BOUND) Respiratory: Diminished Cardiovascular: Normal S1 S2 Neurological: Other (SOMNOLENT, AGITATED AT TIMES.) Assessment and Plan - Problems (Diagnosis) (1) Acute renal failure Onset Date: 12/20/17 Current Visit: No Status: Acute Plan: SECONDARY TO MYELOMA INCURABLE PER DR. STOVALL HER MYELOMA HAS REACHED A STAGE OF INCURABILTY SHE HAS BEEN TO [place] AND HERE FOR YEARS TRYING TO SUPPRESS MYELOMA AND HAS BEEN ON ALMOST CONSTANT CHEMO FOR YEARS. FAMILY IS COMFORTABLE WITH THIS DECISION. (2) Immunosuppressed status Current Visit: No Status: Chronic (3) Multiple myeloma Onset Date: 08/03/17 Current Visit: No Status: Chronic Qualifiers: (4) Thrombocytopenia Current Visit: No Status: Chronic - Advance Directives Does patient have a Living Will: Yes Does patient have a Durable POA for Healthcare: No
[2017-12-23] MEDS: Morphine 2 MG/2 ML SYR IV PRN (06:58)
--- NOTE | 2017-12-23 17:08 | P.DS ---
Admission Date: 12/21/17 Discharge Date: 12/23/17 Disposition: Reason for Admission: RENAL FAILURE, MYELOMA - Problems (1) Acute renal failure Onset Date: 12/20/17 Status: Acute (2) Immunosuppressed status Status: Chronic (3) Multiple myeloma Onset Date: 08/03/17 Status: Chronic Qualifiers: (4) Thrombocytopenia Status: Chronic Brief History of Present Illness: MRS MORE IS READMITTED WITH INPATIENT HOSPICE CARE AFTER CONSENT FROM . SHE IS TERMINAL WITH RENAL FAILURE , SEPSIS FROM MYELOMA. DR. FERRARA HAS RECOMMENDED HOSPICE AND I AGREE. [facility] HAS ADMITTED PATIENT AND I TOOK CARE OF ORDERS YESTERDAY. MRS. MORE EXPECTED TODAY. SHE HAD MULTIPLE MYELOMA WITH RENAL FAILURE. Vital Signs/Physical Exam: Temp Pulse Resp BP Pulse Ox 98.5 F 117 H 12 128/60 66 L 12/23/17 08:00 12/23/17 08:00 12/23/17 08:00 12/23/17 08:00 12/23/17 08:00 Home Medications: Metoprolol Succinate [Toprol Xl*] 50 mg PO DAILY 09/12/16 Pregabalin [Lyrica] 75 mg PO BID 08/01/17 Tramadol HCl [Ultram] 50 mg PO Q6HR PRN 08/01/17 B12/Levomefolate Calcium/B-6 [Foltx Tablet] 1 tab PO DAILY 09/13/17 Allopurinol 100 mg PO DAILY 12/19/17 Folic Acid 1 mg PO DAILY 12/19/17 Pomalidomide [Pomalyst] 2 mg PO DAILY 12/19/17 Potassium Chloride 20 meq PO BID 12/19/17 Apixaban [Eliquis] 5 mg PO BID 12/22/17 Diphenoxylate HCl/Atropine [Diphenoxylate-Atrop 2.5-0.025] 1 tab PO DIRECTED PRN 12/22/17 Omeprazole [Prilosec] 40 mg PO DAILY 12/22/17 Valacyclovir HCl [Valtrex] 500 mg PO DAILY 12/22/17
== END 2017-12-23 13:45 | disposition expired | DRG 951 ==
LOC: 2ND 20:07
PROVIDERS: ADMIT Internal Medicine; ATTEND Internal Medicine
DX: Z51.5 Encounter for palliative care (principal); A41.9 Sepsis, unspecified organism; C90.00 Multiple myeloma not having achieved remission; N17.9 Acute kidney failure, unspecified; I10 Essential (primary) hypertension; J44.9 Chronic obstructive pulmonary disease, unspecified; D69.6 Thrombocytopenia, unspecified
CPT/HCPCS: J2270